=== PATIENT | male | born 1930 | race Caucasian/White ===

== ENCOUNTER 2017-07-11 15:19 | Inpatient (IN) | payer MEDICARE ==
[~2017-07-11] VITALS: Ht 172.7 cm; Wt 67.3 kg
[~2017-07-11 15:19] MED LIST: ASPIRIN81 MG PO; ATORVASTATIN CA10 MG PO; CALCIUM MAGNESIUM ZINC; CLOPIDOGREL75 MG PO; DONEPEZIL HCL5 MG PO; DORZOLAMIDE-TIM10 ML OP; DOXAZOSIN MESYLA8 MG PO; FINASTERIDE5 MG PO; IPRATROPIU0.2 MG/1 M NEB; LATANOPROST2.5 ML OU; LOSARTAN POTASS25 MG PO; METOPROLOL TART25 MG PO; MONTELUKAST SOD10 MG PO; PROVENTIL HFA6.7 GM INH; TAMSULOSIN HCL0.4 MG PO; [UNRECOGNIZED DRUG - OTHER]; aspirin; fish oil; ocuvite; prilosec; vitamin c; vitamin d
--- NOTE | 2017-07-11 17:11 | Diagnostic Imaging Report ---
PROCEDURE: A single AP view of the chest. COMPARISON: 06/14/17 INDICATIONS: SOB FINDINGS: Lines/tubes: Stable left chest wall dual lead cardiac device. Lungs: The lungs are well inflated. Overlying object obscures left lung base. Questionable left base opacification. Pleura: There is no pleural effusion or pneumothorax. Heart and mediastinum: The heart and the mediastinum are unremarkable. Bones: No acute bony abnormality. IMPRESSION: Questionable left basilar/retrocardiac opacification. If not artifactual, this could represent atelectasis and/or pneumonia. Evaluation is limited due to overlying/external object. Dictated by: Ramesh Urrutia M.D. on 07/11/2017 at 17:20 Electronically approved by: Ramesh Urrutia M.D. on 07/11/2017 at 17:20
[2017-07-11 17:46] LABS: BASOPHILS # (AUTO) 0.1 (0.0-0.1); BASOPHILS % 0.7 % (0.0-1.0); EOSINOPHILS # (AUTO) 0.1 (0.0-0.4); EOSINOPHILS % 1.2 % (0.0-6.0); HEMATOCRIT 28.7 % (38.2-49.6); LYMPHOCYTES # (AUTO) 0.9 (1.0-3.2); LYMPHOCYTES % 13.6 % (18.0-39.1); MEAN CORPUSCULAR HGB CONC 31.4 g/dL (31-35); MEAN CORPUSCULAR VOLUME 114.8 fL (81-99); MONOCYTES # (AUTO) 0.5 (0.2-0.8); MONOCYTES % 7.8 % (4.4-11.3); NEUTROPHILS # (AUTO) 5.2 (2.1-6.9); NEUTROPHILS % 75.8 % (38.7-80.0); PLATELET COUNT 137 x10e3/uL (140-360); RED CELL DISTRIBUTION WIDTH 15.7 % (11.7-14.4)
[2017-07-11 17:52] LABS: INR 1.03
[2017-07-11 17:53] LABS: PARTIAL THROMBOPLASTIN TIME 30.2 seconds (23.8-35.5)
[2017-07-11 18:02] LABS: ALBUMIN/GLOBULIN RATIO 1.4 (0.8-2.0); ANION GAP 13.8 mmol/L (8-16); CALCIUM 8.9 mg/dL (8.4-10.2); CREATININE, SERUM 1.28 mg/dL (0.72-1.25); POTASSIUM 3.8 mmol/L (3.5-5.1)
[2017-07-11 18:08] LABS: CREATINE KINASE MB 1.4 ng/mL (0.00-5.00); TROPONIN I 0.032 ng/mL (0-0.300)
[2017-07-11 18:23] LABS: B-TYPE NATRIURETIC PEPTIDE2 279.6 pg/mL (0-100)
[2017-07-11] MEDS ORDERED: IPRATROPIUM BROMIDE 0.02% 2.5 ML NEB NEB PRN (20:15)
[2017-07-11] MEDS ORDERED: ONDANSETRON HCL INJ 2 MG/ML VIAL IV PRN (20:15)
[2017-07-11] MEDS: PIPER-TAZ 3.375 GM 50 ML IV SCH (20:30)
[2017-07-11] MEDS: DOXYCYCLINE HYCLATE TABLET 100 MG TAB PO SCH (21:00)
[2017-07-11] MEDS: MUPIROCIN 2% OINT 22 GM TUBE TOP SCH (21:30)
--- NOTE | 2017-07-11 22:35 | Diagnostic Imaging Report ---
EXAM: FOOT LEFT COMPLETE, AP, lateral and oblique DATE: 07/11/2017 7:36 PM Time stamp on exam: 2004 hours INDICATION: Left great toe infection COMPARISON: None FINDINGS: BONES: No acute fractures. JOINTS: No malalignment. SOFT TISSUES: Soft tissue swelling of the first digit. No radiopaque foreign body. IMPRESSION: No fracture or radiographic evidence of osteomyelitis. Signed by: Dr. Melissa Keita M.D. on 07/11/2017 10:32 PM
[2017-07-12] VITALS (7 sets, daily range): BP systolic 98–130; BP diastolic 49–76
[2017-07-12] MEDS ORDERED: SODIUM CHLORIDE 0.9% 250ML 250 ML ONE (05:35)
[2017-07-12] MEDS: PIPER-TAZ 3.375 GM 50 ML IV SCH ×4 (05:52→17:31)
[2017-07-12 06:48] LABS: BASOPHILS % 0.5 % (0.0-1.0); EOSINOPHILS # (AUTO) 0.1 (0.0-0.4); EOSINOPHILS % 0.9 % (0.0-6.0); HEMATOCRIT 26.9 % (38.2-49.6); HEMOGLOBIN 8.4 g/dL (14.0-18.0); LYMPHOCYTES # (AUTO) 1.1 (1.0-3.2); MEAN CORPUSCULAR HEMOGLOBIN 36.1 pg (28-32); MEAN CORPUSCULAR HGB CONC 31.2 g/dL (31-35); MEAN CORPUSCULAR VOLUME 115.5 fL (81-99); MONOCYTES # (AUTO) 0.7 (0.2-0.8); MONOCYTES % 8.3 % (4.4-11.3); NEUTROPHILS # (AUTO) 6.3 (2.1-6.9); NEUTROPHILS % 76.6 % (38.7-80.0); PLATELET COUNT 133 x10e3/uL (140-360); RED BLOOD COUNT 2.33 x10e6/uL (4.3-5.7); RED CELL DISTRIBUTION WIDTH 15.8 % (11.7-14.4)
[2017-07-12 07:16] LABS: ALANINE AMINOTRANSFERASE 15 IU/L (0-55); ALBUMIN 3.4 g/dL (3.5-5.0); ALBUMIN/GLOBULIN RATIO 1.5 (0.8-2.0); ALKALINE PHOSPHATASE 60 IU/L (40-150); ANION GAP 17.1 mmol/L (8-16); BLOOD UREA NITROGEN 19 mg/dL (7-26); BUN/CREATININE RATIO 17 (6-25); CALCIUM 8.3 mg/dL (8.4-10.2); CARBON DIOXIDE 17 mmol/L (22-29); CHLORIDE 109 mmol/L (98-107); CREATINE KINASE 22 IU/L (30-200); EST GLOMERULAR FILTRATION RATE > 60 ML/MIN (60-); GLUCOSE 80 mg/dL (74-118); POTASSIUM 4.1 mmol/L (3.5-5.1); SODIUM 139 mmol/L (136-145)
[2017-07-12 08:13] LABS: TROPONIN I 0.043 ng/mL (0-0.300)
[2017-07-12] MEDS: DOXYCYCLINE HYCLATE TABLET 100 MG TAB PO SCH ×2 (09:59→17:30)
[2017-07-12] MEDS: MUPIROCIN 2% OINT 22 GM TUBE TOP SCH ×2 (09:59→17:30)
[2017-07-12] MEDS ORDERED: ALBUTEROL SULFATE HFA 8GM INHALATION AEROSOL INH SCH (13:45)
[2017-07-12] MEDS ORDERED: ALBUTEROL SULFATE HFA 8GM INHALATION AEROSOL INH PRN (14:00)
--- NOTE | 2017-07-12 14:34 | History and Physical ---
CHIEF COMPLAINT: Generalized weakness and hypoxia. Oxygen saturation was low. HPI: Mr. Malone is an 86-year-old male who was sent to the emergency room with low oxygen saturation. The patient's daughter reports his oxygen saturation by home health nurse was 84%, and he has been feeling weak and short of breath for the last few days. He has a history of heart failure and sees Dr. Dowell on a regular basis. He had a pacemaker placed recently. After the pacemaker placement, he is having trouble with shortness of breath. It has been evaluated as an outpatient with Dr. Briceño. He denies any chest pain, nausea, vomiting, diarrhea, any GI bleed. His last hemoglobin in May 2016 here was 15.2. Today, it is 8.4. REVIEW OF SYSTEMS GENERAL: Denies any fever or chills. HEAD: Denies any head trauma or head injury. ENT: Denies any earache, nosebleed or throat pain. CVS: Denies any palpitations. RESPIRATORY: Shortness of breath and hypoxia. GI: Denies any nausea or vomiting. MUSCULOSKELETAL: Left foot infection, which happened 4 days ago. OTHER: The rest of the review of systems is negative except as in HPI. PAST MEDICAL HISTORY 1. Congestive heart failure. 2. Pacemaker status. 3. AFib. 4. Hypertension. 5. Hyperlipidemia. 6. Coronary artery disease. PAST SURGICAL HISTORY: None. FAMILY AND SOCIAL HISTORY: He is very independent, lives by himself. Does not smoke and does not drink. PHYSICAL EXAMINATION VITAL SIGNS: Temperature 98.6, pulse 76, blood pressure 104/49, respiratory rate 18, O2 sat 94% on 2 L. SKIN: Warm and dry. GENERAL APPEARANCE: He is an elderly male, not in any obvious distress. He is awake, alert, following commands, feeling weak. HEENT: Head is atraumatic and normocephalic. Pupils are reactive. NECK: Supple. No JVD. Thyroid is not enlarged. CHEST: Clear to auscultation bilaterally. HEART: S1 and S2 audible. ABDOMEN: Soft, nontender and nondistended. EXTREMITIES: No clubbing, cyanosis or edema. The left foot is dressed with a dressing. It is tender. NEUROLOGIC: He is awake and alert. LABS: Sodium 139, potassium 4.1, BUN 19, creatinine 1.1 (was 1.28 yesterday). Lactic acid was normal at 6.1. AST and ALT are normal. Hemoglobin 8.4, hematocrit 26.9, platelets 133. INR is 1.03. Blood cultures have been done. ASSESSMENT: Mr. Malone is an 86-year-old male who presented with hypoxia and weakness. He was found to be anemic and has left toe infection. Chest x-ray is showing possibility of pneumonia. CURRENT PROBLEMS 1. Hypoxia. Etiology is not very clear. The patient was not on oxygen before. He recently has been on oxygen, according to the family after the pacemaker placement. The chest x-ray is showing possibility of left lower lobe infiltrate. However, I am not very sure he has pneumonia. 2. Left toe infection. 3. History of hypertension, currently hypotensive. 4. Anemia and thrombocytopenia, which is new. PLAN 1. I will continue the patient on IV Zosyn. 2. Will do CTA of the chest to further evaluate and rule out possibility of pulmonary embolism. 3. GI consult for evaluation of anemia. 4. Podiatry consult. 5. Hematology consult. 6. Cardiology consult. Patient is well known to Dr. Dowell. Discussed with the patient's daughter at bedside in detail. Job#: [id number]
[2017-07-12 15:07] LABS: BILIRUBIN,URINE 2+ (NEGATIVE); CLARITY,URINE SL CLOUDY (CLEAR); COLOR,URINE AMBER (YELLOW); KETONES,URINE 1+ (NEGATIVE); LEUKOCYTE ESTERASE ,URINE 2+ (NEGATIVE); NITRITE,URINE POSITIVE (NEGATIVE); PROTEIN,URINE DIPSTICK 1+ (NEGATIVE); URINE UROBILINOGEN 1 mg/dL (0.2 - 1)
[2017-07-12 15:23] LABS: EPITHELIAL CELLS,URINE FEW /LPF; WBC,URINE (MAN) 21-50 /HPF (0-5)
[2017-07-12 15:47] LABS: TROPONIN I 0.03 ng/mL (0-0.300)
--- NOTE | 2017-07-12 16:35 | Diagnostic Imaging Report ---
PROCEDURE: CT scan of the chest WITH intravenous contrast, using pulmonary emboli protocol. TECHNIQUE: The chest was scanned utilizing a multidetector helical scanner from the lung apex through the level of the adrenal glands after the IV administration of 65 cc of Isovue 370. Coronal and sagittal multiplanar reformations were obtained. The pulmonary emboli protocol was performed. Total DLP: 524.94 mGy-cm COMPARISON: CT chest 03/28/2012. 04/22/2011. INDICATIONS: SHORTNESS OF BREATH FINDINGS: Lines/tubes: None. Lungs and Airways: Stable severe centrilobular emphysematous changes. Stable calcified granuloma in the right upper lobe. 2 mm nodule in the lateral right upper lobe (series 3 image 30) 1.6 mm nodule in the posterior right upper lobe (series 3 image 30). Bronchiectasis predominantly lower lobes are again seen with mild bronchial wall thickening. Round atelectasis in the right lower lobe remains stable in size and appearance. New debris filling the left lower lobe bronchiectasis with subtle tree in bud nodules, consistent with aspiration. Good contrast bolus. No pulmonary emboli. Pleura: The pleural spaces are clear. Heart and mediastinum: The thyroid gland is normal. No significant mediastinal, hilar or axillary lymphadenopathy is seen. Calcified right hilar lymph nodes. The heart and pericardium are within normal limits. Main pulmonary artery measures 2.4 cm previous and aorta measures 2.8 cm. Soft tissues: Normal. Abdomen: Calcified granulomas in the liver and spleen. Extensive calcifications throughout the pancreas consistent chronic pancreatitis. Cholecystectomy clips. Bilateral adrenal gland thickening without discrete nodule, unchanged and likely represents hyperplasia. 6.1 cm simple cyst in the superior pole of the left kidney. Bones: The visualized bony thorax is within normal limits. IMPRESSION: 1. No pulmonary emboli. 2. Left lower lobe aspiration/pneumonia. 3. Unchanged severe emphysema. 4. Unchanged right lower lobe round atelectasis. Dictated by: Avila Clinton M.D. on 07/12/2017 at 16:43 Electronically approved by: Avila Clinton M.D. on 07/12/2017 at 16:43
[2017-07-12] MEDS: DORZOLAMIDE/TIMOLOL (OPTH SOL) 10 ML DRPETTE OP SCH (17:30)
[2017-07-12] MEDS ORDERED: SODIUM CHLORIDE 0.9% 50ML 50 ML ONE (19:42)
[2017-07-12] MEDS ORDERED: IOPAMIDOL 370 MG/ML 200 ML INFUS..BTL INJ ONE (19:43)
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
[2017-07-12] MEDS: ATORVASTATIN 10 MG TAB PO SCH (21:00)
[2017-07-13] VITALS: BP 113/55
[2017-07-13 04:00] VITALS: BP_SYST 112; BP_SYST 118; BP_DIAS 58; BP_DIAS 70
[2017-07-13] MEDS: PIPER-TAZ 3.375 GM 50 ML IV SCH ×4 (06:00→17:27)
[2017-07-13] MEDS: IPRATROPIUM BROMIDE 0.02% 2.5 ML NEB NEB SCH (07:20)
[2017-07-13 08:35] VITALS: BP 131/63
[2017-07-13] MEDS: DONEPEZIL HCL 5 MG TAB PO SCH (08:45)
[2017-07-13] MEDS: FINASTERIDE 5 MG TAB PO SCH (08:45)
[2017-07-13] MEDS: LOSARTAN POTASSIUM 25 MG TAB PO SCH (08:45)
[2017-07-13] MEDS: MUPIROCIN 2% OINT 22 GM TUBE TOP SCH ×2 (08:46→16:33)
[2017-07-13] MEDS: DOXYCYCLINE HYCLATE TABLET 100 MG TAB PO SCH ×2 (08:46→16:33)
[2017-07-13] MEDS: MONTELUKAST SODIUM 10 MG TAB PO SCH (08:46)
[2017-07-13] MEDS ORDERED: CLOPIDOGREL BISULFATE 75 MG TAB PO SCH (09:00)
[2017-07-13] MEDS: DORZOLAMIDE/TIMOLOL (OPTH SOL) 10 ML DRPETTE OP SCH ×2 (09:00→16:33)
[2017-07-13] MEDS: LATANOPROST(OPTH) 2.5 ML BTL OU SCH (09:00)
[2017-07-13 12:33] VITALS: BP 100/52
[2017-07-13 16:25] VITALS: BP 102/53
--- NOTE | 2017-07-13 18:48 | Consultation ---
DATE OF CONSULTATION: July 11, 2017 REASON FOR CONSULTATION: Infection, left foot. HISTORY OF PRESENT ILLNESS: Mr. Malone is a very pleasant 86-year-old male admitted secondary to low oxygen sats, admitted through the ED, was found to have also erythema, pain associated to his left foot, particularly to the great toe. I was asked to evaluate and treat accordingly. PAST MEDICAL HISTORY: CHF; has cardiac arrhythmias, particularly AFib; hypertension; hyperlipidemia; and CAD. SURGICAL HISTORY: Pacemaker. SOCIAL HISTORY: Independent. habitus. Denies any drinking or smoking. FAMILY HISTORY: Noncontributory. REVIEW OF SYSTEMS: Left foot pain with erythema particularly to the great toe. No nausea, vomiting, fever or chills. No pain, hematuria, constipation, or diarrhea. PHYSICAL EXAMINATION VITAL SIGNS: Temperature 97.3, pulse is 81, blood pressure is 108/60. HEENT: Normocephalic, atraumatic, and anicteric. ABDOMEN: Soft, nontender, and nondistended. RESPIRATORY: Symmetrical expansion. PSYCHIATRIC: Normal affect. EXTREMITIES: There is indeed erythema and edema associated with particularly the left great toe, proximal nail fold particularly with discomfort and pain reproduced upon their palpation. ASSESSMENT: Mild to moderate subungual abscess, left foot, particularly great toe with concomitant pain. PLAN: Continue IV antibiotics for the moment and Bactroban application on daily basis. We will follow to monitor. If persistent pain, may need nail avulsion and perhaps incision and drainage. The aforementioned to be determined based on the clinical progression. I would like to thank Dr. Vargas and Dr. Joseph for allowing me to participate in the care of this patient. Job#: [id number] CF
[2017-07-13 20:00] VITALS: BP 101/56
[2017-07-13] MEDS: ATORVASTATIN 10 MG TAB PO SCH (21:37)
[2017-07-14] VITALS: BP 103/51
[2017-07-14] MEDS: PIPER-TAZ 3.375 GM 50 ML IV SCH ×4 (00:34→17:43)
[2017-07-14] MEDS: PANTOPRAZOLE 40 MG 10ML VIAL IV SCH ×2 (00:45→11:30)
[2017-07-14 04:00] VITALS: BP 111/58
[2017-07-14 07:10] LABS: BASOPHILS # (AUTO) 0.1 (0.0-0.1); BASOPHILS % 0.6 % (0.0-1.0); EOSINOPHILS # (AUTO) 0.2 (0.0-0.4); EOSINOPHILS % 1.9 % (0.0-6.0); HEMATOCRIT 23.8 % (38.2-49.6); LYMPHOCYTES # (AUTO) 0.9 (1.0-3.2); MEAN CORPUSCULAR HEMOGLOBIN 36.5 pg (28-32); MEAN CORPUSCULAR HGB CONC 31.1 g/dL (31-35); MEAN CORPUSCULAR VOLUME 117.2 fL (81-99); MONOCYTES # (AUTO) 0.6 (0.2-0.8); MONOCYTES % 6.8 % (4.4-11.3); NEUTROPHILS # (AUTO) 6.6 (2.1-6.9); NEUTROPHILS % 78.9 % (38.7-80.0); PLATELET COUNT 155 x10e3/uL (140-360); RED BLOOD COUNT 2.03 x10e6/uL (4.3-5.7); RED CELL DISTRIBUTION WIDTH 16.7 % (11.7-14.4)
[2017-07-14 07:19] LABS: HEMOGLOBIN 7.4 g/dL (14.0-18.0)
[2017-07-14] MEDS ORDERED: SODIUM CHLORIDE 0.9% 250ML 250 ML IV ONE (07:30)
[2017-07-14] MEDS: IPRATROPIUM BROMIDE 0.02% 2.5 ML NEB NEB SCH (07:50)
[2017-07-14 08:11] VITALS: BP 95/47
[2017-07-14] MEDS: LOSARTAN POTASSIUM 25 MG TAB PO SCH (09:00)
[2017-07-14] MEDS: DONEPEZIL HCL 5 MG TAB PO SCH (09:29)
[2017-07-14] MEDS: MONTELUKAST SODIUM 10 MG TAB PO SCH (09:29)
[2017-07-14] MEDS: MUPIROCIN 2% OINT 22 GM TUBE TOP SCH ×2 (09:29→16:27)
[2017-07-14] MEDS: DOXYCYCLINE HYCLATE TABLET 100 MG TAB PO SCH ×2 (09:29→16:27)
[2017-07-14] MEDS: DORZOLAMIDE/TIMOLOL (OPTH SOL) 10 ML DRPETTE OP SCH ×2 (09:29→16:27)
[2017-07-14] MEDS: LATANOPROST(OPTH) 2.5 ML BTL OU SCH (09:29)
[2017-07-14] MEDS: FINASTERIDE 5 MG TAB PO SCH (09:29)
[2017-07-14] MEDS ORDERED: SODIUM CHLORIDE 0.9% 250ML 250 ML ONE ×2 (10:40→15:42)
--- NOTE | 2017-07-14 12:35 | Operative Report ---
DATE OF PROCEDURE: July 14, 2017 REFERRING PHYSICIAN: Dr. Vargas and Dr. Joseph. PROCEDURE PERFORMED: Esophagogastroduodenoscopy with polypectomy and biopsy. INDICATIONS FOR PROCEDURE: Dysphagia to solids, upper abdominal pain, early satiety. MEDICATION: Patient was done under MAC. Please see anesthesiologist's note. PROCEDURE: With patient in the left lateral decubitus position, the flexible fiberoptic Olympus gastroscope was introduced into the esophagus under direct visualization without any difficulty. There was some patchy erythema noted in the distal esophagus. A mild stricture was noted at the GE junction, and that was dilated to a size 50-Danish Butler. The scope was then advanced with ease into the stomach, traversing a small sliding hiatal hernia. The mucosa overlying the antrum and the body revealed some patchy erythema and low-grade edema, and biopsies were obtained and sent to stain for H. pylori. A polyp was noted in the proximal body, and that was hot biopsied. The pylorus appeared to be of normal contour and shape, and the scope was advanced with ease all the way to the 2nd portion of the duodenum. The scope was then withdrawn slowly. Mucosa overlying the proximal 2nd portion appeared to be within normal limits. An approximately 5 mm ulcer was noted in the duodenal bulb along the anterior wall without active bleeding. The scope was then withdrawn back into the stomach and retroflexed. Mucosa overlying the fundus and the cardia appeared to be within normal limits. The scope was then straightened out. The stomach was decompressed. The scope was subsequently withdrawn. Patient tolerated the procedure well. IMPRESSION: 1. Distal esophagitis, mild. 2. Esophageal stricture dilated to size 50-Danish Butler. 3. Small sliding hiatal hernia. 4. Gastritis biopsied. Biopsies sent to stain for H. pylori. 5. Gastric polyp, upper body, hot biopsied. 6. Duodenal bulb ulcer, anterior wall, approximately 5 mm without active bleeding. PLAN: Follow up histology. Continue PPI therapy. Job#: [id number] EV cc:MD DU AWAD M.D.
[2017-07-14 12:43] VITALS: BP 125/63
--- NOTE | 2017-07-14 14:55 | Diagnostic Imaging Report ---
PROCEDURE:MODIFIED BA. SWALLOW INDICATION:Hypoxia, esophagitis, esophageal stricture COMPARISON:None. TECHNIQUE:Routine modified barium swallow is performed and show speech pathology. Various viscosities of barium and barium coated food items were administered under fluoroscopic observation. Fluoroscopy time: One minute 50 seconds; cumulative air kerma: 4.9 mGy FINDINGS: There is no evidence of laryngeal penetration or aspiration. Mild vallecular residue was noted with all textures. CONCLUSION: No evidence of laryngeal penetration or aspiration. Please see speech pathology report for additional findings. Dictated by: Johan Lacey M.D. on 07/14/2017 at 15:03 Electronically approved by: Johan Lacey M.D. on 07/14/2017 at 15:03
[2017-07-14 16:33] VITALS: BP 126/65
[2017-07-14] MEDS ORDERED: PROPOFOL IV EMULSION 10 MG/ML 50 ML VIAL ONE (17:43)
[2017-07-14] MEDS ORDERED: LIDOCAINE HCL 2% LOCAL INJ 5 ML SDV VIAL INJ ONE (17:43)
[2017-07-14] MEDS: FUROSEMIDE INJ 10 MG/ML 4 ML VIAL IV ONE ×2 (19:58→19:59)
[2017-07-14 20:00] VITALS: BP 116/65
[2017-07-14] MEDS ORDERED: FUROSEMIDE INJ 10 MG/ML 4 ML VIAL IV ONE (20:00)
[2017-07-14] MEDS: ATORVASTATIN 10 MG TAB PO SCH (20:53)
[2017-07-15] VITALS (9 sets, daily range): BP systolic 100–130; BP diastolic 54–67
[2017-07-15] MEDS: PANTOPRAZOLE 40 MG 10ML VIAL IV SCH ×3 (00:24→23:33)
[2017-07-15] MEDS: PIPER-TAZ 3.375 GM 50 ML IV SCH ×5 (00:24→23:33)
[2017-07-15] MEDS ORDERED: SODIUM CHLORIDE 0.9% 250ML 250 ML ONE (00:42)
[2017-07-15] MEDS: IPRATROPIUM BROMIDE 0.02% 2.5 ML NEB NEB SCH (07:00)
[2017-07-15] MEDS: BUDESONIDE 0.5MG/2 ML NEB INH SCH ×2 (07:00→20:05)
[2017-07-15 07:36] LABS: ANION GAP 13.9 mmol/L (8-16); BLOOD UREA NITROGEN 14 mg/dL (7-26); BUN/CREATININE RATIO 17 (6-25); CALCIUM 8.3 mg/dL (8.4-10.2); CARBON DIOXIDE 21 mmol/L (22-29); CHLORIDE 109 mmol/L (98-107); CREATININE, SERUM 0.84 mg/dL (0.72-1.25); EST GLOMERULAR FILTRATION RATE > 60 ML/MIN (60-); GLUCOSE 94 mg/dL (74-118); POTASSIUM 3.9 mmol/L (3.5-5.1); SODIUM 140 mmol/L (136-145)
[2017-07-15 08:37] LABS: BASOPHILS % 0.4 % (0.0-1.0); EOSINOPHILS # (AUTO) 0.2 (0.0-0.4); EOSINOPHILS % 1.7 % (0.0-6.0); HEMATOCRIT 31.1 % (38.2-49.6); HEMOGLOBIN 10.1 g/dL (14.0-18.0); LYMPHOCYTES % 10.8 % (18.0-39.1); MEAN CORPUSCULAR HEMOGLOBIN 33.7 pg (28-32); MEAN CORPUSCULAR HGB CONC 32.5 g/dL (31-35); MEAN CORPUSCULAR VOLUME 103.7 fL (81-99); MONOCYTES # (AUTO) 0.7 (0.2-0.8); MONOCYTES % 7.1 % (4.4-11.3); NEUTROPHILS # (AUTO) 7.6 (2.1-6.9); NEUTROPHILS % 79.5 % (38.7-80.0); PLATELET COUNT 145 x10e3/uL (140-360)
[2017-07-15 08:40] LABS: RED CELL DISTRIBUTION WIDTH 16.5 % (11.7-14.4)
[2017-07-15] MEDS: LOSARTAN POTASSIUM 25 MG TAB PO SCH (09:00)
[2017-07-15] MEDS: LATANOPROST(OPTH) 2.5 ML BTL OU SCH ×2 (09:06→20:14)
[2017-07-15] MEDS: DONEPEZIL HCL 5 MG TAB PO SCH (09:06)
[2017-07-15] MEDS: DOXYCYCLINE HYCLATE TABLET 100 MG TAB PO SCH ×2 (09:07→17:43)
[2017-07-15] MEDS: FINASTERIDE 5 MG TAB PO SCH (09:07)
[2017-07-15] MEDS: MONTELUKAST SODIUM 10 MG TAB PO SCH (09:07)
[2017-07-15] MEDS: MUPIROCIN 2% OINT 22 GM TUBE TOP SCH ×2 (09:33→17:50)
--- NOTE | 2017-07-15 11:03 | Consultation ---
DATE OF CONSULTATION: July 12, 2017 Mr. Malone is an 86-year-old white male who has been referred to me for evaluation of anemia. No history of hematochezia, melena, hematuria, hematemesis. However, the patient is blind. I have interviewed the daughter and the . SOCIAL HISTORY: Noncontributory. FAMILY HISTORY: Noncontributory. ALLERGIES 1. FLOMAX. 2. ZOLOFT. 3. TRAMADOL. 4. SIMVASTATIN. 5. HYDROCODONE. 6. RAPAFLO. MEDICATIONS AT THIS TIME 1. Albuterol. 2. Zosyn. 3. Doxycycline. 4. Dorzolamide. 5. Timolol drops. 6. Finasteride. 7. Plavix. 8. Losartan. 9. Donepezil. 10. Montelukast. REVIEW OF SYSTEMS HEENT: Normal. CARDIAC: Hypertension, hyperlipidemia, history of congestive heart failure. RESPIRATORY: History of congestive heart failure. GI: Normal. : Normal. MUSCULOSKELETAL: Normal. SKIN AND BREASTS: Normal. NEUROENDOCRINE: Essentially normal. PHYSICAL EXAMINATION GENERAL: A moderately built male, no palpable adenopathy. HEART: Within normal limits. LUNGS: Clear. ABDOMEN: Obese. There is no hepatosplenomegaly. RECTAL: Exam deferred. CENTRAL NERVOUS SYSTEM: Essentially normal. EXTREMITIES: Essentially normal. LABS: Hemoglobin of 8.4, hematocrit 26.9 with a slightly high MCV, WBC of 8.2, platelets of 133,000. INR 1.0. Bilirubin 1.3, SGOT 33, SGPT 15, alkaline phosphatase 60. Sodium 139, potassium 4.1, chloride 79, CO2 17, BUN 19, creatinine 1.1. IMPRESSION 1. 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 2. Congestive heart failure. 3. Status post pacemaker insertion. 4. History of atrial fibrillation. 5. History of coronary artery disease. 6. History of hypertension. 7. History of hyperlipidemia. 8. Hypoproteinemia. 9. Hypoalbuminemia. 10. Emphysema by CAT scan. 11. Bronchiectasis by CAT scan. 12. Left lobe pneumonia by CAT scan. 13. Left toe infection. PLAN, COMMENTS AND SUGGESTIONS: Suggest retic count. Suggest B12 level. If high, consider a bone marrow. However, this is questioned because of his age. B12 level was done, which was high. This rules out a pernicious anemia. Retic response was high at 9%. This could be because of brisk bleed and/or hemolysis. Haptoglobin was done which was low. The patient dropped the hemoglobin down to 7. Subsequently, 2 units of packed RBCs were successfully given. There were no antibodies, which tells me that the patient may have cold agglutinins, which would be of academic interest as there is no treatment for cold agglutinins as such. If he had warm antibodies, the patient could have been given steroids. I have discussed this at length with the patient as well as the family. I will confine myself to hematology only. I would love to follow this patient if the attending would call and make an appointment with me. Thank you very much for allowing me to participate in the management of this patient. Job#: [id number] cc:MD ROVERTO AWAD MD
[2017-07-15] MEDS: DORZOLAMIDE/TIMOLOL (OPTH SOL) 10 ML DRPETTE OP SCH ×2 (11:31→17:43)
[2017-07-15 14:31] LABS: EOSINOPHILS % (MANUAL) 1 % (0-7); HYPOCHROMASIA SLIGHT; LYMPHOCYTES % (MANUAL) 14 % (19-48); MONOCYTES % (MANUAL) 7 % (3.4-9.0); NEUTROPHILS % (MANUAL) 75 % (40-74); PLATELET ESTIMATE SLIGHTLY DECREASED; PLATELET MORPHOLOGY COMMENT NORMAL; RBC MORPHOLOGY COMMENT NORMAL
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
[2017-07-15] MEDS: ATORVASTATIN 10 MG TAB PO SCH (20:13)
[2017-07-16] VITALS (9 sets, daily range): BP systolic 99–144; BP diastolic 45–80
[2017-07-16] MEDS: PIPER-TAZ 3.375 GM 50 ML IV SCH ×4 (05:39→23:32)
[2017-07-16] MEDS: BUDESONIDE 0.5MG/2 ML NEB INH SCH ×2 (07:00→21:00)
[2017-07-16 08:27] LABS: BASOPHILS # (AUTO) 0.1 (0.0-0.1); BASOPHILS % 0.8 % (0.0-1.0); EOSINOPHILS # (AUTO) 0.3 (0.0-0.4); EOSINOPHILS % 3.4 % (0.0-6.0); HEMATOCRIT 33.1 % (38.2-49.6); HEMOGLOBIN 10.8 g/dL (14.0-18.0); LYMPHOCYTES # (AUTO) 1.3 (1.0-3.2); LYMPHOCYTES % 14.3 % (18.0-39.1); MEAN CORPUSCULAR HGB CONC 32.6 g/dL (31-35); MEAN CORPUSCULAR VOLUME 104.1 fL (81-99); MONOCYTES # (AUTO) 0.8 (0.2-0.8); MONOCYTES % 8.3 % (4.4-11.3); NEUTROPHILS # (AUTO) 6.7 (2.1-6.9); NEUTROPHILS % 72.4 % (38.7-80.0); PLATELET COUNT 129 x10e3/uL (140-360); RED BLOOD COUNT 3.18 x10e6/uL (4.3-5.7); RED CELL DISTRIBUTION WIDTH 22.7 % (11.7-14.4)
[2017-07-16] MEDS: DORZOLAMIDE/TIMOLOL (OPTH SOL) 10 ML DRPETTE OP SCH ×2 (08:42→16:15)
[2017-07-16] MEDS: LOSARTAN POTASSIUM 25 MG TAB PO SCH (08:42)
[2017-07-16] MEDS: DONEPEZIL HCL 5 MG TAB PO SCH (08:42)
[2017-07-16] MEDS: FINASTERIDE 5 MG TAB PO SCH (08:42)
[2017-07-16] MEDS: DOXYCYCLINE HYCLATE TABLET 100 MG TAB PO SCH ×2 (08:42→16:15)
[2017-07-16] MEDS: MONTELUKAST SODIUM 10 MG TAB PO SCH (08:42)
[2017-07-16] MEDS: MUPIROCIN 2% OINT 22 GM TUBE TOP SCH ×2 (08:42→16:15)
[2017-07-16 08:56] LABS: ANION GAP 10.5 mmol/L (8-16); BLOOD UREA NITROGEN 16 mg/dL (7-26); BUN/CREATININE RATIO 18 (6-25); CALCIUM 8.3 mg/dL (8.4-10.2); CARBON DIOXIDE 23 mmol/L (22-29); CHLORIDE 111 mmol/L (98-107); CREATININE, SERUM 0.87 mg/dL (0.72-1.25); EST GLOMERULAR FILTRATION RATE > 60 ML/MIN (60-); GLUCOSE 97 mg/dL (74-118); POTASSIUM 3.5 mmol/L (3.5-5.1); SODIUM 141 mmol/L (136-145)
[2017-07-16] MEDS: IPRATROPIUM BROMIDE 0.02% 2.5 ML NEB NEB SCH (09:00)
[2017-07-16 10:25] LABS: ANISOCYTOSIS SLIG; PLATELET ESTIMATE SLIGHTLY DECREASED; PLATELET MORPHOLOGY COMMENT NORMAL; POIKILOCYTOSIS SLIGHT; RBC MORPHOLOGY COMMENT NORMAL; STOMATOCYTES SLIGHT
[2017-07-16] MEDS: PANTOPRAZOLE 40 MG 10ML VIAL IV SCH ×2 (11:28→23:32)
[2017-07-16] MEDS: LATANOPROST(OPTH) 2.5 ML BTL OU SCH (20:19)
[2017-07-16] MEDS: ATORVASTATIN 10 MG TAB PO SCH (20:19)
[2017-07-16 20:37] LABS: BILIRUBIN,URINE NEGATIVE (NEGATIVE); CLARITY,URINE CLEAR (CLEAR); COLOR,URINE YELLOW (YELLOW); KETONES,URINE NEGATIVE (NEGATIVE); LEUKOCYTE ESTERASE ,URINE 1+ (NEGATIVE); NITRITE,URINE NEGATIVE (NEGATIVE); URINE UROBILINOGEN 0.2 mg/dL (0.2 - 1)
[2017-07-16 20:41] LABS: PROTEIN,URINE DIPSTICK 1+ (NEGATIVE)
[2017-07-16 20:54] LABS: BACTERIA,URINE FEW /HPF; EPITHELIAL CELLS,URINE RARE /LPF
[2017-07-16] MEDS: ALBUTEROL SULF 0.083% NEB SOLN 3 ML NEB NEB PRN (21:00)
[2017-07-17] VITALS (8 sets, daily range): BP systolic 109–128; BP diastolic 59–79
[2017-07-17] MEDS: PIPER-TAZ 3.375 GM 50 ML IV SCH ×4 (05:52→23:15)
[2017-07-17] MEDS: BUDESONIDE 0.5MG/2 ML NEB INH SCH ×2 (07:45→19:45)
[2017-07-17] MEDS: ALBUTEROL SULF 0.083% NEB SOLN 3 ML NEB NEB PRN (07:45)
[2017-07-17] MEDS: IPRATROPIUM BROMIDE 0.02% 2.5 ML NEB NEB SCH (07:45)
[2017-07-17] MEDS: LOSARTAN POTASSIUM 25 MG TAB PO SCH (09:00)
[2017-07-17] MEDS: DOXYCYCLINE HYCLATE TABLET 100 MG TAB PO SCH ×2 (09:04→17:41)
[2017-07-17] MEDS: MONTELUKAST SODIUM 10 MG TAB PO SCH (09:04)
[2017-07-17] MEDS: DORZOLAMIDE/TIMOLOL (OPTH SOL) 10 ML DRPETTE OP SCH ×2 (09:04→17:41)
[2017-07-17] MEDS: FINASTERIDE 5 MG TAB PO SCH (09:04)
[2017-07-17] MEDS: DONEPEZIL HCL 5 MG TAB PO SCH (09:04)
[2017-07-17] MEDS: MUPIROCIN 2% OINT 22 GM TUBE TOP SCH ×2 (10:00→17:41)
[2017-07-17] MEDS: PANTOPRAZOLE 40 MG 10ML VIAL IV SCH ×2 (12:28→23:15)
[2017-07-17] MEDS: ATORVASTATIN 10 MG TAB PO SCH (20:45)
[2017-07-17] MEDS: LATANOPROST(OPTH) 2.5 ML BTL OU SCH (20:45)
[2017-07-18] VITALS (7 sets, daily range): BP systolic 103–120; BP diastolic 57–67
[2017-07-18] MEDS: PIPER-TAZ 3.375 GM 50 ML IV SCH ×2 (05:31→13:23)
[2017-07-18] MEDS: IPRATROPIUM BROMIDE 0.02% 2.5 ML NEB NEB SCH (07:07)
[2017-07-18] MEDS: ALBUTEROL SULF 0.083% NEB SOLN 3 ML NEB NEB PRN (07:07)
[2017-07-18] MEDS: BUDESONIDE 0.5MG/2 ML NEB INH SCH ×2 (07:07→19:00)
[2017-07-18] MEDS: LOSARTAN POTASSIUM 25 MG TAB PO SCH (09:00)
[2017-07-18] MEDS: DONEPEZIL HCL 5 MG TAB PO SCH (09:25)
[2017-07-18] MEDS: MUPIROCIN 2% OINT 22 GM TUBE TOP SCH ×2 (09:25→17:29)
[2017-07-18] MEDS: MONTELUKAST SODIUM 10 MG TAB PO SCH (09:25)
[2017-07-18] MEDS: DORZOLAMIDE/TIMOLOL (OPTH SOL) 10 ML DRPETTE OP SCH ×2 (09:25→17:29)
[2017-07-18] MEDS: FINASTERIDE 5 MG TAB PO SCH (09:25)
[2017-07-18] MEDS: DOXYCYCLINE HYCLATE TABLET 100 MG TAB PO SCH ×2 (09:25→17:29)
[2017-07-18] MEDS ORDERED: DOXYCYCLINE HY100 MG PO (09:28)
--- NOTE | 2017-07-18 10:19 | Discharge Summary ---
Patient of Dr. Ku and Dr. Dowell. [facility] 86[facility] with a history of macular degeneration admitted with low saturation of 84% and found to be anemic. Recent pacemaker implantation by Dr. Briceño. History of asbestosis exposure with rounded atelectasis, history of heart failure, atrial fibrillation, hypertension, hyperlipidemia, coronary artery disease. Lives with his . Uses a walker. Hemoglobin on admission was 8.4. He was transfused. He was also found to have an infection of the left great toe and a left lower lobe infiltrate. He was treated with doxycycline. He was seen by Dr. Dinh, Dr. Dowell, Dr. Carl Waite, Dr. Lester, and Dr. Negrete. He had iron deficiency anemia related to his duodenal ulcer, which was not bleeding at the time of endoscopy. He has improved. He did have a urine infection with E. coli. Transferred to the rehab unit for continuing care. He was poorly mobile at this time. He was on montelukast, finasteride, Cosopt, benazepril, doxycycline, budesonide. Zosyn will be stopped. Protonix, latanoprost drops, Lipitor, losartan, Atrovent, and albuterol p.r.n. Zofran p.r.n. Two liters of nasal oxygen as he has been using at home. Staph coagulase-negative was in 1 blood culture. This was felt to be a skin contaminate. He is much improved with stable hemoglobin. Anticoagulation has been held. This will be referred to Dr. Dowell and Dr. Anjana Waite. NORBERTO NÚÑEZ MD Job#: [id number] [place]
[2017-07-18] MEDS: PANTOPRAZOLE 40 MG 10ML VIAL IV SCH ×2 (11:30→23:29)
[2017-07-18] MEDS: LATANOPROST(OPTH) 2.5 ML BTL OU SCH (20:56)
[2017-07-18] MEDS: ATORVASTATIN 10 MG TAB PO SCH (20:56)
[2017-07-18] MEDS: AMOXICILLIN/CLAVULANATE K 500 MG TAB PO SCH (21:59)
[2017-07-19 01:21] VITALS: BP 105/55
[2017-07-19 05:10] VITALS: BP 109/58
[2017-07-19] MEDS: AMOXICILLIN/CLAVULANATE K 500 MG TAB PO SCH (06:03)
[2017-07-19 08:00] VITALS: BP 131/71
[2017-07-19] MEDS: IPRATROPIUM BROMIDE 0.02% 2.5 ML NEB NEB SCH (08:15)
[2017-07-19] MEDS: BUDESONIDE 0.5MG/2 ML NEB INH SCH (08:20)
[2017-07-19] MEDS: MONTELUKAST SODIUM 10 MG TAB PO SCH (08:27)
[2017-07-19] MEDS: DORZOLAMIDE/TIMOLOL (OPTH SOL) 10 ML DRPETTE OP SCH (08:27)
[2017-07-19] MEDS: LOSARTAN POTASSIUM 25 MG TAB PO SCH (08:27)
[2017-07-19] MEDS: MUPIROCIN 2% OINT 22 GM TUBE TOP SCH (08:27)
[2017-07-19] MEDS: DONEPEZIL HCL 5 MG TAB PO SCH (08:27)
[2017-07-19] MEDS: DOXYCYCLINE HYCLATE TABLET 100 MG TAB PO SCH (08:27)
[2017-07-19] MEDS: FINASTERIDE 5 MG TAB PO SCH (08:27)
[2017-07-19] MEDS: PANTOPRAZOLE 40 MG 10ML VIAL IV SCH (11:30)
[2017-07-19 11:56] VITALS: BP 112/59
[2017-07-19] MEDS ORDERED: AMOXICILLIN/CLAVULANATE K 500 MG TAB PO SCH (14:00)
== END 2017-07-19 14:03 | DRG 177 ==
LOC: ER 15:19 → ERHOLD 20:27 → MED/SURG3 07-12 00:39
PROVIDERS: ADMIT Internal Medicine Pulmonary Disease; ATTEND Internal Medicine Pulmonary Disease
PROC: 0DB78ZX Excision of Stomach, Pylorus, Via Natural or Artificial Opening Endoscopic, Diagnostic (ICD-10-PCS; principal; 2017-07-14 11:13)
PROC: 0DB68ZX Excision of Stomach, Via Natural or Artificial Opening Endoscopic, Diagnostic (ICD-10-PCS; 2017-07-14 11:13)
PROC: 30233N1 Transfusion of Nonautologous Red Blood Cells into Peripheral Vein, Percutaneous Approach (ICD-10-PCS; 2017-07-14 11:13)
DX: J69.0 Pneumonitis due to inhalation of food and vomit (principal); J96.01 Acute respiratory failure with hypoxia; I13.2 Hypertensive heart and chronic kidney disease with heart failure and with stage 5 chronic kidney disease, or end stage renal disease; L03.116 Cellulitis of left lower limb; K26.9 Duodenal ulcer, unspecified as acute or chronic, without hemorrhage or perforation; N18.6 End stage renal disease; I50.22 Chronic systolic (congestive) heart failure; N39.0 Urinary tract infection, site not specified; I25.10 Atherosclerotic heart disease of native coronary artery without angina pectoris; E88.09 Other disorders of plasma-protein metabolism, not elsewhere classified; E77.8 Other disorders of glycoprotein metabolism; N35.9 Urethral stricture, unspecified; I25.2 Old myocardial infarction; I48.91 Unspecified atrial fibrillation; D50.0 Iron deficiency anemia secondary to blood loss (chronic); F03.90 Unspecified dementia, unspecified severity, without behavioral disturbance, psychotic disturbance, mood disturbance, and anxiety; H54.8 Legal blindness, as defined in USA; Z95.0 Presence of cardiac pacemaker; K20.9 Esophagitis, unspecified; G47.33 Obstructive sleep apnea (adult) (pediatric); D63.8 Anemia in other chronic diseases classified elsewhere; Z79.01 Long term (current) use of anticoagulants; Z99.81 Dependence on supplemental oxygen; Z77.090 Contact with and (suspected) exposure to asbestos; H35.30 Unspecified macular degeneration; B96.20 Unspecified Escherichia coli [E. coli] as the cause of diseases classified elsewhere; Z99.2 Dependence on renal dialysis; J47.9 Bronchiectasis, uncomplicated
CPT/HCPCS: 36415; 36430; 43239; 43251; 43450; 71010; 71260; 74230; 80048; 80053; 81001; 82270; 82550; 82553; 82607; 82746; 83010; 83605; 83690; 83880; 84484; 85025; 85045; 85610; 85730; 86850; 86900; 86920; 87040; 87071; 87086; 87186; 87205; 87400; 88305; 88312; 93005; 94640; 97139; J1940; J2001; J2543; J7050; P9016; Q9967

== ENCOUNTER 2017-09-16 18:54 | Inpatient (IN) | payer MEDICARE ==
[~2017-09-16] VITALS: Ht 170.2 cm; Wt 78.7 kg
[~2017-09-16 18:54] MED LIST changes: +DOXYCYCLINE HY100 MG PO
--- OUTSIDE RECORDS SUMMARY | 2017-09-16 18:57 | XMS REPORT ---
Author Author [facility] Address Unknown Phone Unavailable Care Team Providers Care [employer] Clerk Name Role Phone NORBERTO NÚÑEZ Unavailable Unavailable Problems This patient has no known problems. Allergies, Adverse Reactions, Alerts This patient has no known allergies or adverse reactions. Medications This patient has no known medications. Results Test Description Test Time Test Comments Text Results Atomic Results Result Comments MODIFIED BA. SWALLOW [place] [address] Patient Name: RICHARD BARROSO MR #: [id number] : 1930 Age/Sex: 86/M Req #: [id number] Adm Physician: NORBERTO NÚÑEZ MD Ordered by: DU HARDEN MD Report #: [id number] Location: [facility] Room/Bed: [facility] ___ Procedure: [id number] DX/MODIFIED BA. SWALLOW Exam Date: 07/14/17 Exam Time: 1248 REPORT STATUS: Signed PROCEDURE: MODIFIED BA. SWALLOW INDICATION: Hypoxia, esophagitis, esophageal stricture COMPARISON: None. TECHNIQUE: Routine modified barium swallow is performed and show speech pathology. Various viscosities of barium and barium coated food items were administered under fluoroscopic observation. Fluoroscopy time: One minute 50 seconds; cumulative air kerma: 4.9 mGy FINDINGS: There is no evidence of laryngeal penetration or aspiration. Mild vallecular residue was noted with all textures. CONCLUSION: No evidence of laryngeal penetration or aspiration. Please see speech pathology report for additional findings. Dictated by: Peter Lacey M.D. on 07/14/2017 at 15:03 Electronically approved by: Peter Lacey M.D. on 07/14/2017 at 15:03 Dictated By: PETER LACEY MD 1503 Transcribed By: CHRISTA on 07/14/17 1503 COPY TO: DU HARDEN MD CT CHEST W [place] [address] Patient Name: RICHARD BARROSO MR #: [id number] : 1930 Age/Sex: 86/M Req #: [id number] Adm Physician: NORBERTO NÚÑEZ MD Ordered by: DU HARDEN MD Report #: [id number] Location: [facility] Room/Bed: [facility] _ Procedure: [id number] CT/CT CHEST W Exam Date: 07/12/17 Exam Time: 1600 REPORT STATUS: Signed PROCEDURE: CT scan of the chest WITH intravenous contrast, using pulmonary emboli protocol. TECHNIQUE: The chest was scanned utilizing a multidetector helical scanner from the lung apex through the level of the adrenal glands after the IV administration of 65 cc of Isovue 370. Coronal and sagittal multiplanar reformations were obtained. The pulmonary emboli protocol was performed. Total DLP: 524.94 mGy-cm COMPARISON: CT chest 03/28/2012. 04/22/2011. INDICATIONS: SHORTNESS OF BREATH FINDINGS: Lines/tubes: None. Lungs and Airways: Stable severe centrilobular emphysematous changes. Stable calcified granuloma in the right upper lobe. 2 mm nodule in the lateral right upper lobe (series 3 image 30) 1.6 mm nodule in the posterior right upper lobe (series 3 image 30). Bronchiectasis predominantly lower lobes are again seen with mild bronchial wall thickening. Round atelectasis in the right lower lobe remains stable in size and appearance. New debris filling the left lower lobe bronchiectasis with subtle tree in bud nodules, consistent with aspiration. Good contrast bolus. No pulmonary emboli. Pleura: The pleural spaces are clear. Heart and mediastinum: The thyroid gland is normal. No significant mediastinal, hilar or axillary lymphadenopathy is seen. Calcified right hilar lymph nodes. The heart and pericardium are within normal limits. Main pulmonary artery measures 2.4 cm previous and aorta measures 2.8 cm. Soft tissues: Normal. Abdomen: Calcified granulomas in the liver and spleen. Extensive calcifications throughout the pancreas consistent chronic pancreatitis. Cholecystectomy clips. Bilateral adrenal gland thickening without discrete nodule, unchanged and likely represents hyperplasia. 6.1 cm simple cyst in the superior pole of the left kidney. Bones: The visualized bony thorax is within normal limits. IMPRESSION: 1. No pulmonary emboli. 2. Left lower lobe aspiration/pneumonia. 3. Unchanged severe emphysema. 4. Unchanged right lower lobe round atelectasis. Dictated by: Tommy Martin M.D. on 07/12/2017 at 16:43 Electronically approved by: Tommy Martin M.D. on 07/12/2017 at 16:43 Dictated By: TOMMY MARTIN MD 1643 Transcribed By: CHRISTA on 07/12/17 1643 COPY TO: DU HARDEN MD [place] [address] Patient Name: RICHARD BARROSO MR #: [id number] : 1930 Age/Sex: 86/M Req #: [id number] Adm Physician: NORBERTO NÚÑEZ MD Ordered by: DYLAN RODRIGUES MD Report #: [id number] Location: [facility] Room/Bed: [place] [address] _ Procedure: DX/FOOT LEFT COMPLETE Exam Date: 07/11/17 Exam Time: 1999 REPORT STATUS: Signed EXAM: FOOT LEFT COMPLETE, AP, lateral and oblique DATE: 07/11/2017 7:36 PM Time stamp on exam: 2005 hours INDICATION: Left great toe infection COMPARISON: None FINDINGS: BONES: No acute fractures. JOINTS: No malalignment. SOFT TISSUES: Soft tissue swelling of the first digit. No radiopaque foreign body. IMPRESSION: No fracture or radiographic evidence of osteomyelitis. Signed by: Dr. Niyah Molina M.D. on 07/11/2017 10:32 PM Dictated By: NIYAH MOLINA MD 31 COPY TO: DYLAN RODRIGUES MD CHEST SINGLE (NOT PORTABLE) [place] [address] Patient Name: RICHARD BARROSO MR #: [id number] : 1930 Age/Sex: 86/M Req #: [id number] Adm Physician: Ordered by: PEYMAN KLINE AOC DIRECTOR COMBAT OPERATIONS OFFICER Report #: [id number] Location: ER Room/Bed: Procedure: DX/CHEST SINGLE (NOT PORTABLE) Exam Date: 07/11/17 Exam Time: 164 REPORT STATUS: Signed PROCEDURE: A single AP view of the chest. COMPARISON: 06/14/17 INDICATIONS: SOB FINDINGS: Lines/tubes: Stable left chest wall dual lead cardiac device. Lungs: The lungs are well inflated. Overlying object obscures left lung base. Questionable left base opacification. Pleura: There is no pleural effusion or pneumothorax. Heart and mediastinum: The heart and the mediastinum are unremarkable. Bones: No acute bony abnormality. IMPRESSION: Questionable left basilar/retrocardiac opacification. If not artifactual, this could represent atelectasis and/or pneumonia. Evaluation is limited due to overlying/external object. Dictated by: Ramesh Roque M.D. on 07/11/2017 at 17:20 Electronically approved by: Ramesh Roque M.D. on 07/11/2017 at 17:20 Dictated By: RAMESH ROQUE MD 19 COPY TO: PEYMAN KLINE AOC DIRECTOR COMBAT OPERATIONS OFFICER CHEST 2 VIEWS [place] [address] Patient Name: RICHARD BARROSO MR #: [id number] : 1930 Age/Sex: 86/M Req #: [id number] Adm Physician: Ordered by: NORBERTO NÚÑEZ MD Report #: [id number] Location: [facility] Room/Bed: Procedure: [id number] DX/ CHEST 2 VIEWS Exam Date: 06/14/17 Exam Time: 1140 REPORT STATUS: Signed PROCEDURE: X-RAY CHEST, TWO VIEWS COMPARISON: . INDICATIONS: SHORTNESS OF BREATH, PACEMAKER, HIATAL HERNIA FINDINGS: The lungs remain well-inflated. No focal airspace consolidation, pleural effusion, or pneumothorax. Stable chronic linear and reticular opacities in the lung bases reflective of fibrotic changes. Calcified granuloma in the right midlung is also unchanged. Stable appearance of left subclavian approach implantable dual lead cardiac device. Heart size is normal with tortuosity and atherosclerotic calcification of the aortic arch. No pulmonary edema. No acute osseous abnormality. CONCLUSION: No acute cardiopulmonary abnormality. Dictated by: Norberto Early M.D. on 06/14/2017 at 12:23 Electronically approved by: Norberto Early M.D. on 06/14/2017 at 12:23 Dictated By: NORBERTO EARLY MD 1223 Transcribed By: CHRISTA on 06/14/17 1223 COPY TO: NORBERTO NÚÑEZ MD
[2017-09-16] MEDS ORDERED: SODIUM CHLORIDE 0.9% 1000ML 1,000 ML IV STA ×3 (19:00→19:02)
[2017-09-16 19:23] LABS: BASOPHILS % 0.7 % (0.0-1.0); HEMATOCRIT 46.9 % (38.2-49.6); HEMOGLOBIN 15.9 g/dL (14.0-18.0); LYMPHOCYTES # (AUTO) 0.1 (1.0-3.2); LYMPHOCYTES % 6.3 % (18.0-39.1); MEAN CORPUSCULAR HEMOGLOBIN 32.6 pg (28-32); MEAN CORPUSCULAR HGB CONC 33.9 g/dL (31-35); MEAN CORPUSCULAR VOLUME 96.3 fL (81-99); MONOCYTES % 0.7 % (4.4-11.3); NEUTROPHILS # (AUTO) 1.3 (2.1-6.9); NEUTROPHILS % 91.6 % (38.7-80.0); PLATELET COUNT 110 x10e3/uL (140-360); RED BLOOD COUNT 4.87 x10e6/uL (4.3-5.7); RED CELL DISTRIBUTION WIDTH 14.6 % (11.7-14.4)
[2017-09-16] MEDS ORDERED: CEFEPIME HCL 2 GM VIAL IV ONE (19:30)
[2017-09-16] MEDS ORDERED: VANCOMYCIN 1GM/NS 250 ML 250 ML IV ONE (19:30)
[2017-09-16 19:44] LABS: ALBUMIN 3.8 g/dL (3.5-5.0); ALBUMIN/GLOBULIN RATIO 1.2 (0.8-2.0); ANION GAP 20.6 mmol/L (8-16); CALCIUM 9.5 mg/dL (8.4-10.2); CREATININE, SERUM 1.23 mg/dL (0.72-1.25); POTASSIUM 3.6 mmol/L (3.5-5.1)
--- NOTE | 2017-09-16 20:16 | Diagnostic Imaging Report ---
Examination: Single AP view of the chest. COMPARISON: CT chest 07/12/2017 INDICATION: Hematuria, diarrhea, pain IMPRESSION: 1. Lines and Tubes: Stable left upper chest dual lead cardiac device. 2. Lungs are well-inflated. Mild increased lucency in the upper lobes, consistent with COPD changes. Stable right upper lobe 5 mm calcified granuloma. Stable tram tracking in the posterior left lower lobe/retrocardiac region, consistent with previously visualized sequela of bronchitis and impacted bronchi. No consolidation. Stable mild blunting of the right lateral costophrenic sulcus secondary to pleural thickening. 3. Cardiomediastinal silhouette is normal. Pulmonary vasculature is normal. 4. No acute bony abnormalities. Signed by: Dr. Avinash Holland M.D. on 09/16/2017 8:12 PM
[2017-09-16 20:34] LABS: LYMPHOCYTES % (MANUAL) 9 % (19-48); METAMYELOCYTES % (MANUAL) 1 % (0-0); MONOCYTES % (MANUAL) 1 % (3.4-9.0); NEUTROPHILS % (MANUAL) 89 % (40-74); PLATELET ESTIMATE SLIGHTLY DECREASED; POLYCHROMASIA MODE; RBC MORPHOLOGY COMMENT NORMAL
[2017-09-16 20:40] LABS: BILIRUBIN,URINE NEGATIVE (NEGATIVE); COLOR,URINE RED (YELLOW); KETONES,URINE NEGATIVE (NEGATIVE); LEUKOCYTE ESTERASE ,URINE 1+ (NEGATIVE); NITRITE,URINE NEGATIVE (NEGATIVE); URINE UROBILINOGEN 0.2 mg/dL (0.2 - 1)
[2017-09-16 20:42] LABS: CLARITY,URINE SL CLOUDY (CLEAR); PROTEIN,URINE DIPSTICK 2+ (NEGATIVE)
[2017-09-16 20:59] LABS: BACTERIA,URINE FEW /HPF; EPITHELIAL CELLS,URINE RARE /LPF; RBC,URINE >50 /HPF (0-5)
[2017-09-16] MEDS ORDERED: ONDANSETRON HCL INJ 2 MG/ML VIAL IV PRN (21:30)
[2017-09-16] MEDS ORDERED: ACETAMINOPHEN 1000 MG/100 ML IV PRN (21:30)
[2017-09-16] MEDS ORDERED: PIPERACILLIN/TAZO 2.25 GM 50 ML IV ONE (22:00)
[2017-09-16] MEDS ORDERED: SODIUM CHLORIDE 0.9% 1000ML 1,000 ML ONE (22:10)
[2017-09-16] MEDS: PIPER-TAZ 3.375 GM 50 ML IV SCH (22:10)
[2017-09-17] VITALS (53 sets, daily range): BP systolic 79–116; BP diastolic 36–77
[2017-09-17] MEDS ORDERED: SODIUM CHLORIDE 0.9% 500ML 500 ML IV ONE (01:15)
[2017-09-17] MEDS: NOREPINEPHRINE BITARTRATE/ NS 250 ML IV SCH ×2 (04:05→20:24)
[2017-09-17] MEDS ORDERED: SODIUM CHLORIDE 0.9% 1000ML 1,000 ML ONE ×2 (05:36→18:25)
[2017-09-17 06:21] LABS: BASOPHILS # (AUTO) 0.1 (0.0-0.1); BASOPHILS % 0.5 % (0.0-1.0); HEMATOCRIT 35.3 % (38.2-49.6); LYMPHOCYTES # (AUTO) 0.2 (1.0-3.2); LYMPHOCYTES % 1.4 % (18.0-39.1); MEAN CORPUSCULAR HEMOGLOBIN 32.4 pg (28-32); MEAN CORPUSCULAR HGB CONC 33.4 g/dL (31-35); MONOCYTES # (AUTO) 0.2 (0.2-0.8); MONOCYTES % 1.2 % (4.4-11.3); NEUTROPHILS # (AUTO) 12.6 (2.1-6.9); NEUTROPHILS % 96.3 % (38.7-80.0); PLATELET COUNT 68 x10e3/uL (140-360); RED BLOOD COUNT 3.64 x10e6/uL (4.3-5.7); RED CELL DISTRIBUTION WIDTH 14.8 % (11.7-14.4)
[2017-09-17 06:26] LABS: HEMOGLOBIN 11.8 g/dL (14.0-18.0)
[2017-09-17] MEDS: PIPER-TAZ 3.375 GM 50 ML IV SCH ×4 (06:44→21:52)
[2017-09-17] MEDS ORDERED: VASOPRESSIN 100 UNIT in DEXTROSE 5% 100ML 95 ML IV PRN (07:30)
[2017-09-17 07:35] LABS: ALBUMIN 2.6 g/dL (3.5-5.0); ALBUMIN/GLOBULIN RATIO 1.4 (0.8-2.0); ANION GAP 12.5 mmol/L (8-16); CALCIUM 7.7 mg/dL (8.4-10.2); CREATININE, SERUM 1.36 mg/dL (0.72-1.25)
[2017-09-17 07:37] LABS: POTASSIUM 2.5 mmol/L (3.5-5.1)
[2017-09-17] MEDS ORDERED: POTASSIUM CHLORIDE 20MEQ/100ML 200 ML IV ONE (08:30)
--- NOTE | 2017-09-17 08:46 | Diagnostic Imaging Report ---
EXAMINATION: CHEST XRAY LINE PLACEMENT INDICATION: Sepsis \S\post PICC line insertion COMPARISON: Chest x-ray 09/16/2017 FINDINGS: AP view TUBES and LINES: Left-sided pacemaker with 2 intact wires. Right PICC line with tip at the atriocaval junction. LUNGS: Lungs are well inflated. Calcified granuloma in the right midlung. There are bibasilar atelectasis. There is no evidence of pneumonia or pulmonary edema. PLEURA: No pleural effusion or pneumothorax. HEART AND MEDIASTINUM: The cardiomediastinal silhouette is unremarkable. BONES AND SOFT TISSUES: No acute osseous lesion. Soft tissues are unremarkable. UPPER ABDOMEN: No free air under the diaphragm. IMPRESSION: Right PICC line with tip at the atriocaval junction. Signed by: Dr. Avila Clinton M.D. on 09/17/2017 8:42 AM
[2017-09-17 10:19] LABS: ANISOCYTOSIS SLIGHT; BAND NEUTROPHILS % (MANUAL) 19 %; LYMPHOCYTES % (MANUAL) 2 % (19-48); MONOCYTES % (MANUAL) 2 % (3.4-9.0); NEUTROPHILS % (MANUAL) 77 % (40-74); PLATELET ESTIMATE MODERATELY DECREASED; PLATELET MORPHOLOGY COMMENT NORMAL; RBC MORPHOLOGY COMMENT NORMAL
[2017-09-17] MEDS ORDERED: IPRATROPIUM BROMIDE 0.02% 2.5 ML NEB NEB PRN (10:30)
[2017-09-17] MEDS ORDERED: METHYLPREDNISOLONE SOD SUCC 40 MG/ML VIAL IV SCH (12:00)
[2017-09-17] MEDS ORDERED: LEVALBUTEROL HCL SOLN NEBU 1.25 MG/3 ML NEB INH SCH (13:00)
--- NOTE | 2017-09-17 14:58 | Diagnostic Imaging Report ---
EXAM: CT Abdomen and Pelvis WITHOUT contrast INDICATION: \S\Urinary obstruction. Verify catheter balloon is in bladder COMPARISON: None. TECHNIQUE: Abdomen and pelvis were scanned utilizing a multidetector helical scanner from the lung base to the pubic symphysis without administration of IV contrast. Absence of intravenous contrast decreases sensitivity for detection of focal lesions and vascular pathology. Coronal and sagittal reformations were obtained. Routine protocol was performed. IV CONTRAST: None ORAL CONTRAST: None COMPLICATIONS: None RADIATION DOSE: Total DLP: 242.6 mGy*cm Estimated effective dose: (DLP x 0.015 x size factor) mSv CTDIvol has been reviewed. It is below the limits set by the Radiation Protocol Committee (RPC). FINDINGS: LINES and TUBES: None. LOWER THORAX: Bilateral lower lobe atelectasis and aspiration with bronchial wall thickening. Mild emphysematous changes in the lung bases. Partially visualized pacemaker leads. HEPATOBILIARY: Scattered calcified granulomas. No focal hepatic lesions. There is intra- and extra- hepatic biliary dilation likely post cholecystectomy resevoir effect. The common duct is not well visualized. GALLBLADDER: No radio-opaque stones or sludge. No wall thickening. SPLEEN: No splenomegaly. PANCREAS: Diffuse dystrophic calcifications and pancreatic atrophy related to prior pancreatitis. ADRENALS: Normal right adrenal gland. Left adrenal gland thickening consistent with hyperplasia. KIDNEYS/URETERS: No hydronephrosis. Right kidney: * 3.5 cm cyst in the superior pole the right kidney. * 2.5 cm cyst in the interpolar region of the right kidney. * 1.4 cm hypodensity along the lateral interpolar region of the right kidney with wall calcification versus layering milk of calcium. * 1.0 cm cyst in the inferior pole of the right kidney. * 3 right renal stones with the largest conglomeration in the lower pole measuring 0.8 cm. Left kidney: * 6.3 cm simple cyst in superior pole. * 2.5 cm cyst with adjacent punctate wall calcification in the interpolar regions (series 3 image 68). * 0.8 cm hypodensity in the inferior pole of the left kidney. * 4 stones in left kidney with the largest measuring 0.9 cm. GI TRACT: No abnormal distention, wall thickening, or evidence of bowel obstruction. Appendix is normal. PELVIC ORGANS/BLADDER: Whatley catheter is within the bladder. There is however severe thickening of the bladder wall with indistinct wall margins. Multiple outpouching of free air. Along the posterior aspect is a 4.8 cm collection (series 3 image 127). This may represent a diverticulum versus an abscess. There are surrounding inflammatory changes involving the surrounding extraperitoneal space. LYMPH NODES: No lymphadenopathy. VESSELS: There is moderate atherosclerotic disease in the aorta and major arterial branches. PERITONEUM / RETROPERITONEUM: Mesenteric edema. BONES: Unremarkable. SOFT TISSUES: Mild anasarca. Nonspecific soft tissues swelling along the left groin. IMPRESSION: 1. Whatley catheter is in place within the bladder. Bladder is decompressed. There is however emphysematous bladder with possible posterior-superior abscess versus diverticulum. 2. Bilateral renal stones with renal cysts. They are incompletely characterized. 3. Chronic pancreatitis. 4. Bilateral lower lobe aspiration. 5. Nonspecific soft tissue swelling around the left groin. Correlate for recent attempts at IV placement. Otherwise this would represent cellulitis with possible underlying myositis. Signed by: Dr. Avila Clinton M.D. on 09/17/2017 2:54 PM
--- NOTE | 2017-09-17 15:09 | History and Physical ---
CHIEF COMPLAINT: Blood in the urine in the catheter. HISTORY OF PRESENT ILLNESS: Mr. Malone is an 86-year-old male, a regular patient of Dr. Prashanth Vargas. Patient reports that a home health nurse tried to insert a catheter and was having difficulty inserting the catheter. However, 18-Bulgarian was inserted and he started having hematuria. So, patient was brought into the emergency room per Dr. Dunaway's order. In the emergency room, patient was found to be septic with fever and lower abdominal discomfort. In the emergency room, patient was running a temperature of 102. Tylenol was given, IV antibiotics were started, and ID and Urology were consulted. Patient reports that he is feeling a little better now, but he is still on Levophed with 30 mcg. He has a history of heart failure, sees Dr. Dowell on a regular basis, had a pacemaker placed. He currently denies any chest pain, nausea, vomiting, diarrhea. REVIEW OF SYSTEMS GENERAL: Was having fever and chills. HEAD: Denies any head trauma or head injury. ENT: Denies any earache, nosebleed, throat pain. CVS: Denies any chest pain. RESPIRATORY: Denies any shortness of breath. GI: Denies any nausea or vomiting. REMAINDER: The rest of the review of systems are negative except as in the HPI. PAST MEDICAL HISTORY 1. Congestive heart failure. 2. Pacemaker status. 3. AFib. 4. Hypertension. 5. Hyperlipidemia. 6. Coronary artery disease. 7. History of urethral stricture, and patient has required Whatley catheter. FAMILY AND SOCIAL HISTORY: He is very independent, lives by himself. Does not smoke, does not drink. Remote history of smoking. PHYSICAL EXAMINATION VITAL SIGNS: Temperature was reportedly 102. Heart rate is not recorded in the chart. Pulse of 84. Blood pressure 105/56. He is on Levophed. O2 sat 99% on 2 liters. SKIN: Warm and dry. GENERAL APPEARANCE: He is an elderly male, not in any obvious distress. He is awake and alert, following commands and responding to questions appropriately. HEENT: Head atraumatic, normocephalic. Pupils reactive. NECK: Supple. CHEST: Clear to auscultation bilaterally. No wheezing, no crackles. HEART: S1/S2 audible. ABDOMEN: Soft, nontender, nondistended. EXTREMITIES: No clubbing, cyanosis or edema. NEUROLOGICALLY: Awake and alert, following commands, responding to questions appropriately. LABS: White count of 13,000, hemoglobin 11.8, platelets 68. White count yesterday was 1.42. Chemistry: Sodium 140, potassium 2.5, chloride 114, BUN 29, creatinine 1.36. Last creatinine was 1.23 on the . Patient got 3 to 4 liters of IV fluid in the emergency room, currently on IV Zosyn. Chest x-ray is not showing any evidence of pneumonia. ASSESSMENT: Mr. Malone is an 86-year-old male who presented with hematuria, fever, a difficult Whatley insertion. Urinalysis shows evidence of urinary tract infection with WBC 6-10. Urine culture is pending. Blood cultures are showing that growth is detected for gram-negative rods in 2 sets. Previous history of E. coli which was sensitive. CURRENT PROBLEMS 1. Septic shock with gram-negative sepsis. 2. Sepsis likely due to UTI. 3. Difficult Whatley insertion and hematuria. 4. History of atrial fibrillation and congestive heart failure. 5. Leukopenia which has resolved, now has leukocytosis. Both were likely due to sepsis. 6. Hypokalemia. 7. Mild acute kidney injury. PLAN 1. Levophed to keep the MAP more than or equal to 65. Will add vasopressin. 2. IV Zosyn and ID consult. 3. Urology consult. 4. Hematology consultation for leukopenia. 5. Replace potassium. 6. Keep the patient in ICU. 7. IV antibiotics per ID recommendations. Critical care time spent 45 minutes. Job#: [id number] [place]
[2017-09-17] MEDS: CIPROFLOXACIN 200 MG/D5W 100ML 100 ML IV SCH (18:17)
[2017-09-17] MEDS: POTASSIUM CHLORIDE 40 MEQ in SODIUM CHLORIDE 0.9% 1000ML 1,000 ML IV SCH (18:52)
[2017-09-17] MEDS ORDERED: SODIUM CHLORIDE 0.9% 1000ML 1,000 ML IV ONE (19:15)
--- NOTE | 2017-09-17 19:38 | Consultation ---
DATE OF CONSULTATION: NO DICTATION, length 0 minutes 1 second. Job#: [id number] [place]
--- NOTE | 2017-09-17 23:14 | Consultation ---
DATE OF CONSULTATION: REASON FOR CONSULTATION: Sepsis. HISTORY OF PRESENT ILLNESS: This patient who is 86-year-old known to me from before. He has a history of difficulty urinating. He does self catheterization. He has urethral stricture. Apparently this time, he was not able to insert the catheter, there was some difficulty, came to emergency room. In the emergency room, there was hematuria, but also he hypotensive with fever and chills. His lactic acid was elevated, so he was admitted. Infectious disease was consulted. I discussed the case with ER physician and also with critical care. The patient is currently in intensive care unit. He is feeling better since he came here. He has no specific complaint, but he remains on vasopressors. He is just not feeling well. PAST MEDICAL HISTORY: Congestive heart failure, arrhythmia, pacemaker, atrial fibrillation, hypertension, hyperlipidemia, coronary artery disease, urethral stricture. PAST SURGICAL HISTORY: As above. ALLERGIES: NKA. SOCIAL HISTORY: There is no smoking, drug abuse, or alcohol abuse. FAMILY HISTORY: Hypertension. REVIEW OF SYSTEMS: GENERAL: He is just not feeling well. HEENT: There is no headache, visual changes, hearing changes. GI: There is no nausea, no vomiting, no diarrhea. NEURO: No seizure activity. IMPRESSION: 1. Sepsis and septic shock secondary to urinary tract infection. The patient has history of urinary tract infection before. Blood culture is ordered. Urine culture is ordered. Blood cultures are already showing gram-negative rods. He is currently on Zosyn. I will add Levaquin. 2. When he first came, his white count was 1.4, now it is 13.09. I think he was quite septic when he first presented. His sodium is 2.5, hyponatremia is being corrected. 3. Acute tubular necrosis. His creatinine is 1.36. 4. Elevated liver enzymes, probably shock liver. 5. Will follow with you. Thank you. Job#: [id number]
[2017-09-18] VITALS (100 sets, daily range): BP systolic 54–142; BP diastolic 25–126
[2017-09-18] MEDS: NOREPINEPHRINE BITARTRATE/ NS 250 ML IV SCH ×5 (01:07→22:36)
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
[2017-09-18] MEDS ORDERED: NALOXONE HCL INJ 0.4 MG/ML AMP IV PRN (03:30)
[2017-09-18] MEDS: MORPHINE SULFATE 2 MG/ML SYR IV PRN ×5 (03:30→22:38)
[2017-09-18] MEDS: CIPROFLOXACIN 200 MG/D5W 100ML 100 ML IV SCH ×2 (04:10→15:46)
[2017-09-18] MEDS: POTASSIUM CHLORIDE 40 MEQ in SODIUM CHLORIDE 0.9% 1000ML 1,000 ML IV SCH (04:12)
[2017-09-18] MEDS: PIPER-TAZ 3.375 GM 50 ML IV SCH ×2 (05:38→14:05)
[2017-09-18 11:16] LABS: HEMOGLOBIN 12.5 g/dL (14.0-18.0); LYMPHOCYTES # (AUTO) 0.6 (1.0-3.2); LYMPHOCYTES % 1.6 % (18.0-39.1); MEAN CORPUSCULAR HEMOGLOBIN 32.4 pg (28-32); MEAN CORPUSCULAR HGB CONC 33.8 g/dL (31-35); MEAN CORPUSCULAR VOLUME 95.9 fL (81-99); MONOCYTES # (AUTO) 2.4 (0.2-0.8); MONOCYTES % 6.2 % (4.4-11.3); NEUTROPHILS # (AUTO) 31.1 (2.1-6.9); NEUTROPHILS % 78.3 % (38.7-80.0); PLATELET COUNT 51 x10e3/uL (140-360); RED BLOOD COUNT 3.86 x10e6/uL (4.3-5.7); RED CELL DISTRIBUTION WIDTH 15.2 % (11.7-14.4)
[2017-09-18 11:38] LABS: ALBUMIN 2.4 g/dL (3.5-5.0); ANION GAP 13.3 mmol/L (8-16); BILIRUBIN,DIRECT 0.7 mg/dL (0.0-0.5); CALCIUM 7.1 mg/dL (8.4-10.2); POTASSIUM 4.3 mmol/L (3.5-5.1)
[2017-09-18 11:58] LABS: BAND NEUTROPHILS % (MANUAL) 16 %; EOSINOPHILS % (MANUAL) 1 % (0-7); LYMPHOCYTES % (MANUAL) 5 % (19-48); METAMYELOCYTES % (MANUAL) 2 % (0-0); MONOCYTES % (MANUAL) 5 % (3.4-9.0); MYELOCYTES % (MANUAL) 2 % (0-0); NEUTROPHILS % (MANUAL) 69 % (40-74); NUCLEATED RED BLOOD CELLS 1
[2017-09-18 11:59] LABS: PLATELET ESTIMATE MODERATELY DECREASED; PLATELET MORPHOLOGY COMMENT NORMAL; RBC MORPHOLOGY COMMENT NORMAL
[2017-09-18] MEDS ORDERED: SODIUM CHLORIDE 0.9% 1000ML 1,000 ML IV SCH (12:15)
[2017-09-18] MEDS: HYDROCORTISONE SOD SUCCINATE 100 MG VIAL IV SCH ×2 (12:35→21:23)
[2017-09-18] MEDS ORDERED: SODIUM BICARBONATE 8.4% INJ 50 ML SYR IV SCH (14:46)
[2017-09-18] MEDS ORDERED: SODIUM BICARBONATE 8.4% 75 ML in DEXTROSE 5%/0.45% SOD CHL 1,000 ML IV ONE (15:00)
[2017-09-18] MEDS ORDERED: ALBUMIN HUMAN 150 ML IV ONE (17:21)
[2017-09-18] MEDS: ACETAMINOPHEN 325 MG TAB PO PRN ×2 (17:30→23:39)
--- NOTE | 2017-09-18 17:38 | Progress Note ---
DATE: SUBJECTIVE: Mr. Malone is feeling better today. He has no new complaints. Review of systems is negative. Discussed with Dr. Dunaway. PHYSICAL EXAMINATION: GENERAL: He is currently alert and oriented. Does not seem to be in acute distress. He remains in ICU. VITAL SIGNS: T-max 100.4. His heart rate 85, blood pressure 110/44. HEENT: Normocephalic, atraumatic. NECK: Supple. CHEST: Clear. COR: S1, S2. No S3, S4. No murmur. ABDOMEN: Soft. Bowel sounds present. No tenderness. EXTREMITIES: No cyanosis, clubbing, edema. LABORATORY DATA: His blood culture is showing gram-negative rods, sensitivity still pending. His white count is 38.89 today, hemoglobin 12, hematocrit 37. Sodium 137, potassium 4.3, creatinine is 2. IMPRESSION 1. Sepsis with acute tubular necrosis over chronic kidney disease. 2. Gram-negative secondary to pyelonephritis. Continue with Cipro. Continue with Zosyn, will adjust to 2.25 q.8. Continue with supportive care. Recheck CBC in the morning and chem panel. Job#: [id number] DAMON
[2017-09-18] MEDS ORDERED: ALBUMIN 5% 250ML IV SCH (18:00)
[2017-09-18] MEDS: BUDESONIDE 0.5MG/2 ML NEB INH SCH (19:00)
[2017-09-18] MEDS: LEVALBUTEROL HCL SOLN NEBU 0.63 MG/3 ML NEB INH SCH (19:09)
[2017-09-18] MEDS: ATORVASTATIN 10 MG TAB PO SCH (21:00)
[2017-09-18] MEDS: PIPERACILLIN/TAZO 2.25 GM 50 ML IV SCH (21:23)
[2017-09-18] MEDS: LATANOPROST(OPTH) 2.5 ML BTL OU SCH (21:23)
[2017-09-19] VITALS (97 sets, daily range): BP systolic 59–145; BP diastolic 30–119
--- NOTE | 2017-09-19 00:10 | Consultation ---
DATE OF CONSULTATION: September 18, 2017 NEPHROLOGY CONSULTATION REASON FOR THE CONSULT: ARLEN and oliguria. HISTORY OF PRESENT ILLNESS: Mr. Malone is an 86-year-old pleasant gentleman, who known to have multiple medical problems, hypertension along with coronary artery disease, status post previous angioplasty times 1 stent, and he is known to have CHF with EF of 40% along with COPD, BPH, and kidney stones from before and history of previous GI bleed with admission, and status post pacemaker per record. The patient basically used to do a straight cath at home because of retention and BPH symptoms. However, he was noted to be lethargic with fatigue and generalized weakness along with chills, so he was brought to the ER for further evaluation for which the Whatley was difficult to be inserted. Eventually, they got the Whatley inserted and there was hematuria gross coming out. The patient also is growing bacteria in his blood and along in his urine, which is subjective of urosepsis. Blood pressure was low. He has been admitted in the ICU with Levophed and vasopressin and getting IV fluids and he is on frequent irrigation for his Whatley. It was noted that his creatinine is elevated along with decrease in his urine output and thus, we are consulted. REVIEW OF SYSTEMS: Negative. PAST MEDICAL HISTORY: As mentioned above. PAST SURGICAL HISTORY: Status post cholecystectomy and right knee surgery, surgeries in the eyes. The patient is now he is legally blind. FAMILY HISTORY: Positive for hypertension and heart disease. SOCIAL HISTORY: He is . Living with his for 70 years. He denies smoking, alcohol, IV drug abuse. He used to smoke in the past. ALLERGIES: Per records, SIMVASTATIN, TAMSULOSIN, SILADOSIN, SERTRALINE, HYDROCODONE, AND TRAMADOL. MEDICATIONS: Please refer to the list. PHYSICAL EXAM VITAL SIGNS: Today, blood pressure 96/33, heart rate is 84, and his temperature is 100.4. GENERAL APPEARANCE: No acute distress. He is difficult to hear, but he is alert, oriented. HEAD, EARS, EYES, NECK: No lymphadenopathy. HEART: Regular rate and rhythm. LUNGS: Good bilateral air entry. Decreased breath sounds at the bases . ABDOMEN: Soft, nontender. EXTREMITIES: Trace edema. : His urine output so far has been almost around 25 mL an hour. LABS: Looks like white count went up to 38.8 with left shift, hemoglobin is 12.5, he has sodium 137, potassium was 4.3, that has been repleted, his carbon dioxide is 13, BUN 44, creatinine is 2 up from 1.36, lactic acid is 34.3, calcium 7.1. LFTs are elevated, but starting to come down. AST 417 now 93, ALT from 262 to 130, albumin is 2.4, and globulin is 1.9. IMAGING: Reviewed and his CT of abdomen suggests thickening of the bladder with emphysematous changes, possible diverticulum, bilateral kidney stones, and cyst as described. ASSESSMENT AND PLAN 1. Acute kidney injury, suspect in the setting of sepsis with oliguric acute tubular necrosis, decrease in urine output, almost 25 mL an hour with hypotension and decreased perfusion to the kidneys. Check fraction excretion of sodium and renal ultrasound. Avoid nephrotoxins. Adjust antibiotics according to glomerular filtration rate. In the meantime, the patient is getting intravenous fluids. Will monitor and recheck labs. I had a lengthy discussion with the patient and the in case his kidney function does not takeoff and his kidney function keeps deteriorating with severe acidosis and decrease in his urine output further. He would proceed with hemodialysis given low threshold for renal replacement therapy. The patient will discuss with the and in the meantime, we will monitor his laboratories. I hope his creatinine will plateau and his creatinine starts improving with intravenous fluids and antibiotics. 2. Electrolytes, potassium repleted. Monitor closely. 3. Metabolic acidosis. Add bicarbonate to the intravenous fluids. 4. Hypotensive shock secondary to sepsis. The patient is on vasopressin, Levophed, titrate. 5. Urine retention and BPH. He is having gross hematuria with frequent irrigation, Whatley inserted. 6. Urosepsis with blood cultures showing gram-negative bacilli and urine culture positive. The patient is on antibiotics. Infectious disease has been consulted. Adjust the current glomerular filtration rate. 7. History of heavy smoking and chronic obstructive pulmonary disease. Pulmonary is on the case. 8. Coronary artery disease and congestive heart failure, status post previous angioplasty times 1 stent. Cardiology has been consulted. I think he was in atrial fibrillation on admission. Now his heart rate is in the 80s. Monitor closely. Follow cardiology recommendation. Thank you for the consult. We will update the primary team for further recommendations. Job#: [id number] CQ
[2017-09-19] MEDS: ALBUMIN 5% 250 ML IV SCH ×4 (00:19→17:09)
[2017-09-19] MEDS: LEVALBUTEROL HCL SOLN NEBU 0.63 MG/3 ML NEB INH SCH ×6 (02:00→23:15)
[2017-09-19] MEDS: MORPHINE SULFATE 2 MG/ML SYR IV PRN (02:32)
[2017-09-19] MEDS: CIPROFLOXACIN 200 MG/D5W 100ML 100 ML IV SCH (04:22)
[2017-09-19] MEDS: ACETAMINOPHEN 325 MG TAB PO PRN (04:41)
[2017-09-19] MEDS: HYDROCORTISONE SOD SUCCINATE 100 MG VIAL IV SCH ×3 (05:54→21:43)
[2017-09-19] MEDS: PIPERACILLIN/TAZO 2.25 GM 50 ML IV SCH ×2 (05:54→14:26)
--- NOTE | 2017-09-19 06:20 | Diagnostic Imaging Report ---
CHEST SINGLE (PORTABLE), 09/19/2017 7:00 AM Technique: CHEST SINGLE (PORTABLE) Comparison: 09/17/2017 Clinical history: Shortness of breath Findings: See Impression Impression: 1. Lines/Tubes: Stable right PICC and left chest wall pacer. 2. Patchy bibasilar opacities suspicious for aspiration or infection. 3. Small right effusion. Signed by: Dr Marina Collier MD on 09/19/2017 6:16 AM
[2017-09-19 06:57] LABS: ANION GAP 15.9 mmol/L (8-16); CREATININE, SERUM 1.85 mg/dL (0.72-1.25); MAGNESIUM 1.2 MG/DL (1.3-2.1); PHOSPHORUS 4.2 MG/DL (2.3-4.7); POTASSIUM 3.9 mmol/L (3.5-5.1)
[2017-09-19 07:01] LABS: CALCIUM 6.9 mg/dL (8.4-10.2)
[2017-09-19] MEDS: BUDESONIDE 0.5MG/2 ML NEB INH SCH ×2 (07:08→20:05)
[2017-09-19] MEDS ORDERED: MAGNESIUM SULFATE 2GM/50ML 50 ML IV ONE (08:45)
[2017-09-19 08:47] LABS: HEMATOCRIT 32.9 % (38.2-49.6); LYMPHOCYTES # (AUTO) 0.3 (1.0-3.2); LYMPHOCYTES % 0.8 % (18.0-39.1); MEAN CORPUSCULAR HEMOGLOBIN 32.7 pg (28-32); MEAN CORPUSCULAR HGB CONC 33.4 g/dL (31-35); MEAN CORPUSCULAR VOLUME 97.9 fL (81-99); MONOCYTES % 2.6 % (4.4-11.3); NEUTROPHILS # (AUTO) 37.6 (2.1-6.9); NEUTROPHILS % 96.1 % (38.7-80.0); RED BLOOD COUNT 3.36 x10e6/uL (4.3-5.7); RED CELL DISTRIBUTION WIDTH 15.5 % (11.7-14.4)
[2017-09-19 08:53] LABS: PLATELET COUNT 33 x10e3/uL (140-360)
[2017-09-19] MEDS: DONEPEZIL HCL 5 MG TAB PO SCH (09:00)
[2017-09-19] MEDS: PANTOPRAZOLE 40 MG 10ML VIAL IV SCH ×2 (09:03→16:06)
[2017-09-19] MEDS: DORZOLAMIDE/TIMOLOL (OPTH SOL) 10 ML DRPETTE OP SCH ×2 (09:03→16:14)
[2017-09-19 09:34] LABS: BAND NEUTROPHILS % (MANUAL) 22 %; LYMPHOCYTES % (MANUAL) 2 % (19-48); METAMYELOCYTES % (MANUAL) 5 % (0-0); MONOCYTES % (MANUAL) 4 % (3.4-9.0); NEUTROPHILS % (MANUAL) 67 % (40-74)
[2017-09-19 09:35] LABS: ANISOCYTOSIS SLIGHT; PLATELET ESTIMATE MARKEDLY DECREASED; PLATELET MORPHOLOGY COMMENT NORMAL; RBC MORPHOLOGY COMMENT NORMAL
[2017-09-19] MEDS ORDERED: DIPHENHYDRAMINE HCL INJ 50 MG/ML VIAL IV ONE (10:45)
[2017-09-19] MEDS ORDERED: SODIUM BICARBONATE 8.4% INJ 50 ML SYR IV STA (11:48)
[2017-09-19] MEDS: SODIUM BICARBONATE 8.4% 75 ML in DEXTROSE 5%/0.45% SOD CHL 1,000 ML IV SCH (12:14)
[2017-09-19] MEDS: MEROPENEM 500 MG VIAL IV SCH (16:05)
--- NOTE | 2017-09-19 16:32 | Progress Note ---
DATE: INFECTIOUS DISEASE PROGRESS NOTE SUBJECTIVE: Mr. Malone is continuing to do well. There is no new complaint. I met with the family. REVIEW OF SYSTEMS: There is nothing new today. His laboratory data reviewed. He grew E. coli in the blood and in the urine, but this sensitivity pattern is different. PHYSICAL EXAMINATION GENERAL: He is currently alert, does not seem to be in acute distress. VITAL SIGNS: Stable. Currently afebrile. His temperature 97.1, heart rate 69, blood pressure 104/64. HEENT: He does not appear icteric. Normocephalic. NECK: Supple. CHEST: Clear bilaterally. HEART: S1 and S2. No S3 or S4, no murmur. ABDOMEN: Soft. Bowel sounds present. No tenderness. EXTREMITIES: No edema. SKIN: No rash. IMPRESSION 1. Sepsis with Escherichia coli. Source pyelonephritis. Will change him to meropenem 500 q.12 h. 2. Chronic kidney disease. 3. History of benign prostate hypertrophy. 4. History of smoking. 5. History of chronic obstructive pulmonary disease. 6. History of coronary artery disease. 7. History of congestive heart failure. Will follow with you. Job#: [id number] EV
--- NOTE | 2017-09-19 18:32 | Diagnostic Imaging Report ---
PROCEDURE:US RETROPERITONEAL ( KIDNEY ). COMPARISON:Patients [facility], CT, CT ABDOMEN/PELVIS WO, 09/17/2017, 14:01. INDICATIONS:STONES TECHNIQUE: Nicholas-scale and color sonographic images of the bilateral kidneys and bladder where obtained in transverse and longitudinal planes. FINDINGS: RIGHT KIDNEY: Length: 11.9 cm Cysts: Multiple and unilocular measuring up to 3.4 cm Solid masses: None Stones: None Hydronephrosis: None Echogenicity: Increased LEFT KIDNEY: Length: 10.4 cm Cysts: Multiple and unilocular measuring up to 5.2 cm Solid masses: None Stones: None Hydronephrosis: None Echogenicity: Increased Bladder: Collapsed around a Whatley catheter with diffusely thickened solis. No free intraperitoneal fluid. A small left pleural effusion is suspected. Visualized portions of the liver and spleen demonstrate no focal abnormality. CONCLUSION: The intrarenal calculi identified on CT are not visible sonographically. No hydronephrosis. Bilateral renal cysts. Increased renal echotexture consistent with medical renal disease. Diffuse bladder wall thickening suggestive of cystitis, either acute or chronic. Dictated by: Lila Chowdhury M.D. on 09/19/2017 at 18:32 Electronically approved by: Lila Chowdhury M.D. on 09/19/2017 at 18:32
[2017-09-19] MEDS: ATORVASTATIN 10 MG TAB PO SCH ×2 (21:00→21:43)
[2017-09-19] MEDS: LATANOPROST(OPTH) 2.5 ML BTL OU SCH (21:43)
[2017-09-20] VITALS (41 sets, daily range): BP systolic 103–154; BP diastolic 61–100
[2017-09-20] MEDS: ALBUMIN 5% 250 ML IV SCH ×4 (00:01→17:30)
[2017-09-20] MEDS: NOREPINEPHRINE BITARTRATE/ NS 250 ML IV SCH (02:40)
[2017-09-20] MEDS: SODIUM BICARBONATE 8.4% 75 ML in DEXTROSE 5%/0.45% SOD CHL 1,000 ML IV SCH ×3 (02:40→20:15)
[2017-09-20] MEDS: LEVALBUTEROL HCL SOLN NEBU 0.63 MG/3 ML NEB INH SCH ×6 (03:25→23:10)
[2017-09-20] MEDS: MEROPENEM 500 MG VIAL IV SCH ×2 (04:00→15:03)
[2017-09-20] MEDS: HYDROCORTISONE SOD SUCCINATE 100 MG VIAL IV SCH ×2 (05:48→15:05)
[2017-09-20 06:11] LABS: BASOPHILS # (AUTO) 0.1 (0.0-0.1); BASOPHILS % 0.3 % (0.0-1.0); HEMATOCRIT 28.7 % (38.2-49.6); HEMOGLOBIN 9.8 g/dL (14.0-18.0); LYMPHOCYTES # (AUTO) 0.5 (1.0-3.2); LYMPHOCYTES % 1.7 % (18.0-39.1); MEAN CORPUSCULAR HEMOGLOBIN 32.1 pg (28-32); MEAN CORPUSCULAR HGB CONC 34.1 g/dL (31-35); MEAN CORPUSCULAR VOLUME 94.1 fL (81-99); MONOCYTES # (AUTO) 0.8 (0.2-0.8); MONOCYTES % 3.1 % (4.4-11.3); NEUTROPHILS # (AUTO) 25.2 (2.1-6.9); NEUTROPHILS % 93.9 % (38.7-80.0); RED BLOOD COUNT 3.05 x10e6/uL (4.3-5.7); RED CELL DISTRIBUTION WIDTH 15.2 % (11.7-14.4)
[2017-09-20 06:26] LABS: PLATELET COUNT 44 x10e3/uL (140-360)
[2017-09-20 06:39] LABS: ALBUMIN 3.2 g/dL (3.5-5.0); ANION GAP 12.3 mmol/L (8-16); BILIRUBIN,DIRECT 0.7 mg/dL (0.0-0.5); CALCIUM 7.4 mg/dL (8.4-10.2); CREATININE, SERUM 1.57 mg/dL (0.72-1.25); POTASSIUM 3.3 mmol/L (3.5-5.1)
[2017-09-20] MEDS: BUDESONIDE 0.5MG/2 ML NEB INH SCH ×2 (07:35→19:20)
[2017-09-20 07:43] LABS: BAND NEUTROPHILS % (MANUAL) 8 %; LYMPHOCYTES % (MANUAL) 2 % (19-48); MONOCYTES % (MANUAL) 4 % (3.4-9.0); NEUTROPHILS % (MANUAL) 86 % (40-74)
[2017-09-20 07:44] LABS: ANISOCYTOSIS SLIGHT; PLATELET ESTIMATE MARKEDLY DECREASED; PLATELET MORPHOLOGY COMMENT NORMAL; RBC MORPHOLOGY COMMENT NORMAL
[2017-09-20] MEDS: PANTOPRAZOLE 40 MG 10ML VIAL IV SCH ×2 (08:52→17:00)
[2017-09-20] MEDS: DONEPEZIL HCL 5 MG TAB PO SCH (08:52)
[2017-09-20] MEDS: DORZOLAMIDE/TIMOLOL (OPTH SOL) 10 ML DRPETTE OP SCH ×2 (09:59→17:00)
[2017-09-20] MEDS ORDERED: POTASSIUM CHLORIDE 20MEQ/100ML 100 ML IV ONE (10:30)
--- NOTE | 2017-09-20 12:05 | Diagnostic Imaging Report ---
PROCEDURE:X-RAY MODIFIED BARIUM SWALLOW COMPARISON:None. INDICATIONS:Not provided. DISCUSSION:Fluoroscopic examination was performed in conjunction with speech pathology, during swallowing of a variety of thin and thick liquid consistencies. CONCLUSION: No penetration or aspiration. Please see the report from speech pathology for complete details. Dictated by: Bakari Mei M.D. on 09/20/2017 at 12:05 Electronically approved by: Bakari Mei M.D. on 09/20/2017 at 12:05
[2017-09-20] MEDS ORDERED: MAGNESIUM SULFATE 2GM/50ML 50 ML IV ONE (12:30)
[2017-09-20 15:43] LABS: CREATININE,URINE RANDOM 36.73 mg/dL (63-166); SODIUM,URINE < 20 mmol/L; TOTAL PROTEIN, URINE 18.1 mg/dL (1-14)
[2017-09-20 16:34] LABS: EOSINOPHIL SMEAR,URINE NONE SEEN (NONE SEEN)
[2017-09-20] MEDS: LATANOPROST(OPTH) 2.5 ML BTL OU SCH (21:07)
[2017-09-20] MEDS: ATORVASTATIN 10 MG TAB PO SCH (21:07)
[2017-09-21] VITALS: BP 111/64
[2017-09-21] MEDS: ALBUMIN 5% 250 ML IV SCH ×5 (00:06→23:54)
[2017-09-21] MEDS: LEVALBUTEROL HCL SOLN NEBU 0.63 MG/3 ML NEB INH SCH ×5 (03:07→23:00)
[2017-09-21 04:00] VITALS: BP 134/71
[2017-09-21] MEDS: MEROPENEM 500 MG VIAL IV SCH ×2 (04:40→16:34)
[2017-09-21 06:22] LABS: BASOPHILS % 0.2 % (0.0-1.0); HEMATOCRIT 28.5 % (38.2-49.6); HEMOGLOBIN 9.7 g/dL (14.0-18.0); LYMPHOCYTES # (AUTO) 0.5 (1.0-3.2); MEAN CORPUSCULAR HEMOGLOBIN 32.2 pg (28-32); MEAN CORPUSCULAR VOLUME 94.7 fL (81-99); MONOCYTES # (AUTO) 0.6 (0.2-0.8); NEUTROPHILS # (AUTO) 11.1 (2.1-6.9); NEUTROPHILS % 89.4 % (38.7-80.0); RED BLOOD COUNT 3.01 x10e6/uL (4.3-5.7); RED CELL DISTRIBUTION WIDTH 15.1 % (11.7-14.4)
[2017-09-21] MEDS ORDERED: SODIUM CHLORIDE 0.9% 250ML 250 ML ONE (06:23)
[2017-09-21 06:48] LABS: ANION GAP 11.3 mmol/L (8-16); CALCIUM 7.7 mg/dL (8.4-10.2); CREATININE, SERUM 1.17 mg/dL (0.72-1.25); PLATELET COUNT 29 x10e3/uL (140-360); POTASSIUM 3.3 mmol/L (3.5-5.1)
[2017-09-21] MEDS: BUDESONIDE 0.5MG/2 ML NEB INH SCH ×2 (06:51→20:30)
[2017-09-21 07:08] LABS: MAGNESIUM 1.7 MG/DL (1.3-2.1); PHOSPHORUS 1.5 MG/DL (2.3-4.7)
[2017-09-21 07:40] LABS: ANISOCYTOSIS SLIGHT; BAND NEUTROPHILS % (MANUAL) 4 %; HYPOCHROMASIA SLIGHT; LYMPHOCYTES % (MANUAL) 3 % (19-48); MONOCYTES % (MANUAL) 4 % (3.4-9.0); NEUTROPHILS % (MANUAL) 87 % (40-74); PLATELET ESTIMATE ADEQUATE; PLATELET MORPHOLOGY COMMENT NORMAL; RBC MORPHOLOGY COMMENT NORMAL
[2017-09-21 08:00] VITALS: BP 144/70
[2017-09-21] MEDS ORDERED: POTASSIUM CHLORIDE 20 MEQ TAB CR PO NR (09:45)
[2017-09-21] MEDS: HYDROCORTISONE SOD SUCCINATE 100 MG VIAL IV SCH ×2 (09:53→16:34)
[2017-09-21] MEDS: PANTOPRAZOLE 40 MG 10ML VIAL IV SCH ×2 (09:53→16:34)
[2017-09-21] MEDS: DONEPEZIL HCL 5 MG TAB PO SCH (09:53)
[2017-09-21] MEDS: DORZOLAMIDE/TIMOLOL (OPTH SOL) 10 ML DRPETTE OP SCH ×2 (09:53→16:34)
[2017-09-21 12:00] VITALS: BP 137/68
[2017-09-21 16:00] VITALS: BP 154/70
[2017-09-21] MEDS ORDERED: POTASSIUM PHOSPHATE 20 MM in SODIUM CHLORIDE 0.9% 250ML 250 ML IV SCH (18:15)
[2017-09-21] MEDS ORDERED: POTASSIUM PHOSPHATE 15 MM in SODIUM CHLORIDE 0.9% 250ML 250 ML IV SCH ×2 (18:30→19:00)
[2017-09-21 21:00] VITALS: BP 154/70
[2017-09-21] MEDS: LATANOPROST(OPTH) 2.5 ML BTL OU SCH (21:00)
[2017-09-21] MEDS: MEGESTROL ACETATE 40 MG TAB PO SCH (21:00)
[2017-09-21] MEDS: ATORVASTATIN 10 MG TAB PO SCH (21:00)
[2017-09-21] MEDS: NYSTATIN SUSPENSION 5 ML UDC PO SCH (21:00)
[2017-09-21] MEDS: ACETAMINOPHEN 325 MG TAB PO PRN (23:55)
[2017-09-22] MEDS: MEROPENEM 500 MG VIAL IV SCH ×2 (04:00→17:16)
[2017-09-22] MEDS: NYSTATIN SUSPENSION 5 ML UDC PO SCH ×5 (05:00→22:25)
[2017-09-22] MEDS: ALBUMIN 5% 250 ML IV SCH ×2 (06:00→11:08)
[2017-09-22 06:07] LABS: ANION GAP 12.3 mmol/L (8-16); BLOOD UREA NITROGEN 43 mg/dL (7-26); BUN/CREATININE RATIO 51 (6-25); CALCIUM 8.1 mg/dL (8.4-10.2); CARBON DIOXIDE 24 mmol/L (22-29); CHLORIDE 116 mmol/L (98-107); CREATININE, SERUM 0.85 mg/dL (0.72-1.25); EST GLOMERULAR FILTRATION RATE > 60 ML/MIN (60-); GLUCOSE 109 mg/dL (74-118); PHOSPHORUS 1.2 MG/DL (2.3-4.7); POTASSIUM 3.3 mmol/L (3.5-5.1); SODIUM 149 mmol/L (136-145)
[2017-09-22] MEDS: LEVALBUTEROL HCL SOLN NEBU 0.63 MG/3 ML NEB INH SCH ×5 (07:00→23:35)
[2017-09-22] MEDS: BUDESONIDE 0.5MG/2 ML NEB INH SCH ×2 (07:00→19:50)
[2017-09-22 08:00] VITALS: BP 172/77
[2017-09-22 08:45] LABS: BASOPHILS % 0.2 % (0.0-1.0); HEMATOCRIT 28.3 % (38.2-49.6); HEMOGLOBIN 9.7 g/dL (14.0-18.0); LYMPHOCYTES # (AUTO) 0.6 (1.0-3.2); LYMPHOCYTES % 6.1 % (18.0-39.1); MEAN CORPUSCULAR HEMOGLOBIN 32.3 pg (28-32); MEAN CORPUSCULAR HGB CONC 34.3 g/dL (31-35); MEAN CORPUSCULAR VOLUME 94.3 fL (81-99); MONOCYTES # (AUTO) 0.7 (0.2-0.8); NEUTROPHILS # (AUTO) 8.9 (2.1-6.9); NEUTROPHILS % 84.9 % (38.7-80.0); RED CELL DISTRIBUTION WIDTH 15.2 % (11.7-14.4)
[2017-09-22 08:48] LABS: PLATELET COUNT 42 x10e3/uL (140-360)
[2017-09-22] MEDS ORDERED: HYDROCORTISONE SOD SUCCINATE 100 MG VIAL IV SCH (09:00)
[2017-09-22] MEDS: PANTOPRAZOLE 40 MG 10ML VIAL IV SCH ×2 (09:38→17:16)
[2017-09-22] MEDS: DONEPEZIL HCL 5 MG TAB PO SCH (09:38)
[2017-09-22] MEDS: MEGESTROL ACETATE 40 MG TAB PO SCH ×2 (09:38→22:25)
[2017-09-22] MEDS: DORZOLAMIDE/TIMOLOL (OPTH SOL) 10 ML DRPETTE OP SCH ×2 (09:38→17:16)
[2017-09-22 12:00] VITALS: BP 133/74
[2017-09-22] MEDS ORDERED: POTASSIUM PHOSPHATE 20 MM in SODIUM CHLORIDE 0.9% 250ML 250 ML IV ONE (12:30)
[2017-09-22] MEDS ORDERED: FUROSEMIDE INJ 10 MG/ML 4 ML VIAL IV ONE (12:45)
[2017-09-22 16:00] VITALS: BP 164/90
[2017-09-22] MEDS: ACYCLOVIR 15 GM OINT TP SCH ×4 (17:16→23:10)
[2017-09-22] MEDS: CARVEDILOL 3.125 MG TAB PO SCH (17:16)
[2017-09-22] MEDS: LATANOPROST(OPTH) 2.5 ML BTL OU SCH (21:00)
[2017-09-22] MEDS: ATORVASTATIN 10 MG TAB PO SCH (22:25)
[2017-09-23] MEDS: ACYCLOVIR 15 GM OINT TP SCH ×5 (02:00→14:00)
[2017-09-23] MEDS: LEVALBUTEROL HCL SOLN NEBU 0.63 MG/3 ML NEB INH SCH ×2 (03:00→07:00)
[2017-09-23] MEDS: MEROPENEM 500 MG VIAL IV SCH (03:54)
[2017-09-23] MEDS: NYSTATIN SUSPENSION 5 ML UDC PO SCH ×3 (04:46→13:00)
[2017-09-23] MEDS: ACETAMINOPHEN 325 MG TAB PO PRN (06:31)
[2017-09-23] MEDS: BUDESONIDE 0.5MG/2 ML NEB INH SCH (07:00)
[2017-09-23 07:14] LABS: BLOOD UREA NITROGEN 35 mg/dL (7-26); BUN/CREATININE RATIO 45 (6-25); CARBON DIOXIDE 26 mmol/L (22-29); CHLORIDE 112 mmol/L (98-107); CREATININE, SERUM 0.77 mg/dL (0.72-1.25); EST GLOMERULAR FILTRATION RATE > 60 ML/MIN (60-); GLUCOSE 92 mg/dL (74-118); MAGNESIUM 1.6 MG/DL (1.3-2.1); PHOSPHORUS 2.5 MG/DL (2.3-4.7); SODIUM 145 mmol/L (136-145)
[2017-09-23 07:55] VITALS: BP 114/57
[2017-09-23 08:00] VITALS: BP 114/57
[2017-09-23] MEDS ORDERED: POTASSIUM CHLORIDE 20 MEQ TAB CR PO STA (08:28)
[2017-09-23] MEDS ORDERED: BENZONATATE 100 MG CAP PO SCH (09:00)
[2017-09-23] MEDS: DORZOLAMIDE/TIMOLOL (OPTH SOL) 10 ML DRPETTE OP SCH (09:00)
[2017-09-23] MEDS: PANTOPRAZOLE 40 MG 10ML VIAL IV SCH (09:00)
[2017-09-23] MEDS: MEGESTROL ACETATE 40 MG TAB PO SCH (09:00)
[2017-09-23] MEDS: DONEPEZIL HCL 5 MG TAB PO SCH (09:00)
[2017-09-23] MEDS: CARVEDILOL 3.125 MG TAB PO SCH (09:00)
[2017-09-23 11:55] VITALS: BP 121/55
[2017-09-23] MEDS ORDERED: POTASSIUM CHLORIDE 10 MEQ TABCR PO NR (12:00)
[2017-09-23] MEDS ORDERED: ACYCLOVIR 200 MG CAP PO SCH (14:00)
[2017-09-23] MEDS ORDERED: MAALOX/LIDOCAINE/BENADRYL 120 ML BTL PO SCH (15:00)
--- NOTE | 2017-09-23 15:41 | Discharge Summary ---
FINAL DIAGNOSES 1. Escherichia coli sepsis. 2. Escherichia coli urinary tract infection. 3. Hematuria due to Whatley trauma. 4. Debility and weakness. 5. Sepsis. 6. Herpetic ulcers on the mouth. 7. Chronic obstructive pulmonary disease. 8. Hypertension. 9. Hyperlipidemia. 10. Anemia. 11. Dementia. ADMISSION HISTORY AND HOSPITAL COURSE: Mr. Malone is an 86-year-old male, a regular patient of Dr. Vargas, who presented with hypotension and septic shock. He had a traumatic Whatley catheter placement at home. He had a temperature of 102 at home. When the patient came in, he was in septic shock in ICU. ID, nephrology and hematology consults were called as the patient is well known to all these services. The patient gradually improved. IV antibiotics were continued per Dr. Lee's recommendations. The patient is off vasopressors; however, he still requires antibiotics for sepsis. He is extremely weak and debilitated. He will be transferred to long-term acute care for further care. Two days ago, he started having herpetic ulcers on the mouth. Acyclovir ointment has been started. I will discuss with Dr. Lee and start the patient on p.o. acyclovir. DU HARDEN MD Job#: [id number]
== END 2017-09-23 14:41 | DRG 871 ==
LOC: ER 09-17 08:48 → ICU 09-17 09:39 → MED/SURG2 09-20 15:40
PROVIDERS: ADMIT Internal Medicine Pulmonary Disease; ATTEND Internal Medicine Pulmonary Disease
PROC: 02HV33Z Insertion of Infusion Device into Superior Vena Cava, Percutaneous Approach (ICD-10-PCS; principal; 2017-09-17)
DX: A41.51 Sepsis due to Escherichia coli [E. coli] (principal); R65.21 Severe sepsis with septic shock; K72.00 Acute and subacute hepatic failure without coma; D65 Disseminated intravascular coagulation [defibrination syndrome]; N17.0 Acute kidney failure with tubular necrosis; J44.9 Chronic obstructive pulmonary disease, unspecified; S37.39XA Other injury of urethra, initial encounter; I50.20 Unspecified systolic (congestive) heart failure; E87.2 Acidosis; I48.92 Unspecified atrial flutter; N30.01 Acute cystitis with hematuria; I48.91 Unspecified atrial fibrillation; D70.9 Neutropenia, unspecified; Z95.0 Presence of cardiac pacemaker; E87.6 Hypokalemia; I25.10 Atherosclerotic heart disease of native coronary artery without angina pectoris; Z95.5 Presence of coronary angioplasty implant and graft; N40.1 Benign prostatic hyperplasia with lower urinary tract symptoms; R33.8 Other retention of urine; Z87.891 Personal history of nicotine dependence; N50.0 Atrophy of testis; R53.81 Other malaise
CPT/HCPCS: 36415; 36569; 51700; 71045; 74176; 74230; 76770; 80048; 80053; 80076; 81001; 81015; 82533; 82570; 82948; 83605; 83735; 84100; 84156; 84300; 85025; 86900; 87040; 87071; 87086; 87186; 87205; 93005; 94640; 96360; 96365; 96367; 99284; J0692; J1200; J1720; J1940; J2185; J2270; J2543; J3370; J3480; J7030; J7040; J7050; P9034